=== PATIENT | male | born 1965 | race Caucasian/White ===

== ENCOUNTER 2016-08-25 18:20 | Emergency (ER) | payer OTHER ==
[~2016-08-25] VITALS: Ht 177.8 cm; Wt 97.5 kg
[~2016-08-25 18:20] MED LIST: CYMBALTA60 MG PO; DILAUDID 4 MG TA4 MG PO; DILAUDID4 M1 PO; DULOXETINE HCL60 MG PO; FIORICET 325 MG1 TAB PO; HYDROMORPHONE HC4 M1 PO; LIDODERM1 EACH EXT; MOTRIN IB200 M1 PO; NEURONTIN800 M1 PO; NEURONTIN800 M2 PO; OPANA ER15 M1 PO; OPANA ER20 M1 PO; OXYCONTIN20 M1 PO
--- NOTE | 2016-08-25 19:30 | RADIOLOGY REPORT ---
EXAMINATION: XR FINGER, RIGHT CLINICAL INFORMATION: Cut right thumb with greater. Laceration over base COMPARISON: None TECHNIQUE: 2 plain film views of the right thumb. FINDINGS: Bones are in normal anatomic alignment with no acute fracture or dislocation seen. Prominent degenerative changes seen about the first IP joint and MCP joint. Milder degenerative osteophyte formation seen within the second through fifth digits. No underlying acute fracture or dislocation. No radiopaque foreign body. IMPRESSION: Degenerative bony changes. I do not appreciate any radiopaque foreign body or acute bony abnormality.
--- NOTE | 2016-08-25 20:09 | ED UPPER/LOWER EXTREMITY COMPL ---
History of Present Illness General Chief Complaint: Hand or Wrist Injury Stated Complaint: PT CUT HIS RIGHT THUMB Source: patient Exam Limitations: no limitations Vital Signs & Intake/Output Vital Signs & Intake/Output Vital Signs Date Time Temp Pulse Resp B/P Pulse O2 O2 Flow FiO2 Ox Delivery Rate 08/25 2025 97.3 73 18 160/100 100 08/25 1835 96.3 84 18 143/97 98 Room Air Allergies Coded Allergies: NSAIDS (Non-Steroidal Anti-Inflamma (ANAPHYLAXIS - TONGUE SWELLS 01/02/16) Reconcile Medications Duloxetine HCl 60 MG CAPSULE.DR 1 CAP PO DAILY NERVE PAIN (Reported) Gabapentin (Neurontin) 800 MG TABLET 1 TAB PO Q6H NERVE PAIN (Reported) Hydromorphone HCl 4 MG TABLET 1 TAB PO 5 TIMES A DAY PAIN CONTROL (Reported) Oxymorphone HCl (Opana ER) 20 MG TAB.ER.12H 1 TAB PO BID PAIN (Reported) Triage Note: 51 YO MALE TO ER FOR LACERATION TO L THUMB. LAC APPROX 1 INCH. BLEEDING CONTROLLED. DRESSING APPLIED IN TRIAGE. STATES HE CUT THUMB ON A GRATER AT WORK. PT REPORTS TINGLING SENSATION TO THUMB. PT NOT UTD WITH TETANUS Triage Nurses Notes Reviewed? yes Onset: Abrupt Duration: constant Timing: single episode today Severity: severe Severity Numbers: 7 Pain/Injury Location: Right: Hand. HPI: Patient is a 51-year-old male with a past medical history of chronic back pain who presents emergency room stating that today this evening while patient was grinding a metal bolt he lost control of the bolts subsequently struck the dorsal aspect of his right hand to the instrument lens grinder resulting in a laceration which bleeding occurred immediately. Patient is right arm dominant. Tetanus status is unknown. Subsequent patient states that due to this episode patient twisted his back and has been complaint of severe back muscular pain. Past History Travel History Traveled to [place] past 21 day No Medical History Any Pertinent Medical History? 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 No Review of Systems Review of Systems Constitutional: Reports: no symptoms. EENTM: Reports: no symptoms. Respiratory: Reports: no symptoms. Cardiovascular: Reports: no symptoms. Gastrointestinal/Abdominal: Reports: no symptoms. Genitourinary: Reports: no symptoms. Musculoskeletal: Reports: see HPI, back pain. Skin: Reports: see HPI. Neurological/Psychological: Reports: no symptoms. Hematologic/Endocrine: Reports: see HPI, bleeding. Immunological: Reports: no symptoms. All Other Systems: Reviewed and Negative Physical Exam Physical Exam General Appearance: mild distress Neurologic/Tendon: normal sensation, normal motor functions, normal tendon functions, responds to pain, no evidence tendon injury, no pulse deficit Skin: normal color, warm/dry Comments: HEENT: Normal EENT exam, Neck: Supple, no lymphadenopathy, normal range of motion without pain or tenderness Back: Decreased active range of motion noted, generalized point tenderness noted Cardiovascular: Regular rate and rhythms no murmurs rubs or gallops, normal JVP Respiratory: Chest nontender. No respiratory distress.breath sounds clear to auscultation bilaterally Abdomen: Soft, nontender nondistended, no appreciable organomegaly. Normal bowel sounds. No ascites Extremity: No edema, no calf tenderness to palpation, normal and equal pulses. Neuro: Alert oriented x3, motor sensory normal, Skin: No appreciable rash on exposed skin, skin is warm and dry. Psych: Mood and affect is normal, memory and judgment is normal. Diagram Hands Back 1) 1.5 cm subcutaneous mildly gaping laceration with full active and resisted range of motion noted with first digit thumb flexion extension abduction and adduction and no tendon deficit no exposed bone no exposed tendon no active bleeding Progress Differential Diagnosis: arterial insufficiency, compartment syndrome, contusion, dislocation, DVT, fracture, gout, septic arthritis, sprain, tendon injury Plan of Care: Margins were revised the suture placement, patient tolerated well bacitracin and bandage was applied Diagnostic Imaging: Viewed by Me: Radiology Read. Radiology Impression: no acute abnormality, no fracture Comments: PATIENT: JUVENCIO GRIFFITHS PRESENT AGE: 51 PATIENT ACCOUNT NO: [id number] : 63 LOCATION: [facility] ORDERING PHYSICIAN: HENNING (TBS) DONTE SAEED SERVICE DATE: 08/25/16 EXAM TYPE: RAD - XRY-FINGERS, RIGHT EXAMINATION: XR FINGER, RIGHT CLINICAL INFORMATION: Cut right thumb with greater. Laceration over base COMPARISON: None TECHNIQUE: 2 plain film views of the right thumb. FINDINGS: Bones are in normal anatomic alignment with no acute fracture or dislocation seen. Prominent degenerative changes seen about the first IP joint and MCP joint. Milder degenerative osteophyte formation seen within the second through fifth digits. No underlying acute fracture or dislocation. No radiopaque foreign body. IMPRESSION: Degenerative bony changes. I do not appreciate any radiopaque foreign body or acute bony abnormality. Departure Departure Disposition: HOME OR SELF CARE Condition: Stable Clinical Impression Primary Impression: Laceration of hand, right Secondary Impressions: Low back strain Referrals: ISAAC MARLOW,MIRTHA Del Castillo (PCP/Family) Additional Instructions: As discussed BEGIN TO APPLY bacitracin to the area once a day for the following 4 days with bandage and then leave wound open to improve healing. If you note signs of infection redness, pain, swelling, discharge return to emergency room immediately. Return to the emergency room in 7-10 days for suture removal. Continue all medications as directed. Departure Forms: Customer Survey General Discharge Information Procedures Laceration/Wound Repair Laceration/Wound Repair: Wound Location: upper extremity (RIGHT HAND) Wound's Depth, Shape: linear, subcutaneous Wound Length (cm): 1.5 Wound Explored: clean, no foreign body removed, irrigated extensively Irrigated w/ Saline (ccs): 500 Betadine Prep? Yes Anesthesia: 1% lidocaine Volume Anesthetic (ccs): 4 Wound Repaired With: sutures Suture Size/Type: 5:0 Number of Sutures: 4 Layer Closure? No Progress: Margins were revised suture placement
[2016-08-25 20:26] VITALS: BP 160/100
== END 2016-08-25 21:01 ==
LOC: ERH 18:20
DX: S61.011A Laceration without foreign body of right thumb without damage to nail, initial encounter (principal); S39.012A Strain of muscle, fascia and tendon of lower back, initial encounter; W31.1XXA Contact with metalworking machines, initial encounter
CPT/HCPCS: 73140-RT; 90714

== ENCOUNTER 2016-09-15 15:50 | Inpatient (IN) | payer OTHER ==
[~2016-09-15] VITALS: Ht 177.8 cm; Wt 99.8 kg
--- NOTE | 2016-09-15 16:26 | ED MVC/FALL/TRAUMA COMPLAINT ---
History of Present Illness General Chief Complaint: Fall Stated Complaint: PER PT FELL DOWN 20 STAIRS, PAIN ALL OVER -LOC Source: patient, old records Exam Limitations: no limitations Vital Signs & Intake/Output Vital Signs & Intake/Output Vital Signs Date Time Temp Pulse Resp B/P Pulse O2 O2 Flow FiO2 Ox Delivery Rate 09/15 2154 97.6 80 18 155/92 96 Room Air Room Air 09/15 1925 97.5 78 18 167/95 96 Room Air Room Air 09/15 1556 97.8 92 20 152/100 95 Room Air Allergies Coded Allergies: NSAIDS (Non-Steroidal Anti-Inflamma (ANAPHYLAXIS - TONGUE SWELLS 01/02/16) Reconcile Medications Duloxetine HCl 60 MG CAPSULE.DR 1 CAP PO DAILY NERVE PAIN (Reported) Gabapentin (Neurontin) 800 MG TABLET 1 TAB PO Q6H NERVE PAIN (Reported) Hydromorphone HCl 4 MG TABLET 1 TAB PO 5 TIMES A DAY PAIN CONTROL (Reported) Oxymorphone HCl (Opana ER) 20 MG TAB.ER.12H 1 TAB PO BID PAIN (Reported) Triage Note: C/O MULTIPLE BODY PAIN AFTER FALLING DOWN STEPS APPROX 1/2 HR AGO C/O BILATERAL LEG NUMBNESS AND PAIN BUT REPORTS HX OF SCIATICA AND DUE FOR SURG C/O LBP, SHOULDER PAIN, HEAD PAIN ALERT ORIENTED MOVING ALL EXTREMITIES Triage Nurses Notes Reviewed? yes Onset: Just prior to arrival Duration: hour(s): (1) Timing: no prior history Severity: moderate Severity Numbers: 8 Injuries/Fall Location: upper extremity, back, lower extremity Method of Injury: fall Loss of Consciousness: unsure Modifying Factors: Worsens With: movement. HPI: Patient is a 51-year-old male with history of herniated disks in the low back presenting to the emergency department chief complaint of fall down approximately 20 steps prior to arrival. He reports that he was walking down to his basement accidentally tripped and fell forward. He slid down approximately 20 steps. He thinks he may of hit his head at the end of the fall but is unsure. Unsure of LOC. He reports that he braced himself with his upper and lower extremities sliding down on his forearms. Denies abdominal pain or chest pain. No visual changes or nausea or vomiting. He was lying on the ground for about 15-20 minutes before he was able to get up by himself. He reports that over the past several months he's had increasing low back pain radiating down both legs. He is supposed to have low back surgery in approximately 2 weeks by a neurosurgeon. Denies any urinary incontinence or retention. Denies taking anything for pain prior to arrival. He does take daily Dilaudid for chronic pain. Patient also reporting that over the past couple months symptoms have been worsening along with his depression. Patient reports that he is always in pain and he feels like if his pain is starting to get better than he doesn't want to be here any longer. Denies any active suicidal ideation. He does report increased anxiety and depression around his symptoms. (GABRIEL DELAROSA) Past History Travel History Traveled to [place] past 21 day No Medical History Any Pertinent Medical History? see below for history Neurological: migraine EENT: NONE Cardiovascular: hypertension Respiratory: NONE, SMOKER Gastrointestinal: ICONTINENCE AT TIMES Hepatic: NONE Renal: NONE Musculoskeletal: chronic back pain Psychiatric: anxiety, depression Endocrine: NONE Blood Disorders: NONE Cancer(s): NONE IT CONSULTING MANAGER/Reproductive: NONE History of MRSA: No History of VRE: No History of CDIFF: No Tetanus Vaccine: 08/25/16 Surgical History Surgical History: non-contributory Psychosocial History Who do you live with Patient/Self What is your primary language Ghanaian Tobacco Use: Current Not Daily Daily Tobacco Use Amount/Type: =< 4 Cigarettes daily ETOH Use: denies use Illicit Drug Use: denies illicit drug use Family History Family History, If Any: Relation not specified for: *No pertinent family history Hx Contributory? No (GABRIEL DELAROSA) Review of Systems Review of Systems Constitutional: Reports: malaise. Comments Review of systems: See HPI, All other systems negative. Constitutional, no chills fever or weight loss HEENT: No visual changes no sore throat no congestion Cardiovascular: No chest pain ,palpitation , orthopnea or ankle swelling Skin, no jaundice no rashes Respiratory: No dyspnea cough sputum or hemoptysis GI: No nausea no vomiting : No dysuria No hematuria Muscle skeletal: no neck pain, Neurologic: no confusion, no headaches Psych: Positive stress Heme/endocrine: No bruising no bleeding no polyuria or polydipsia Immunology: No splenectomy or history of AIDS (GABRIEL DELAROSA) Physical Exam Physical Exam General Appearance: well developed/nourished, alert, awake, mild distress Comments: Well-developed well-nourished person in mild distress HEENT: extraocular motion intact, no nystagmus. Pupils equally round and reactive to light and accommodation. Nose is atraumatic. External auditory canal and Tympanic membranes clear. Pharynx normal. No swelling or edema. Neck: Supple, no lymphadenopathy, normal range of motion without pain or tenderness, no C-spine tenderness. No step-off deformities. No crepitus palpated. Back: Tender to palpation along L1, L2-L3 and L4. Positive straight leg raise bilaterally at approximately 25. Significant limited range of motion of the back with back extension and Forward flexion secondary to pain. Cardiovascular: Regular rate and rhythms no murmurs rubs or gallops, normal JVP Respiratory: Chest nontender. No respiratory distress.breath sounds clear to auscultation bilaterally Abdomen: Soft, nontender nondistended, no appreciable organomegaly. Normal bowel sounds. No ascites, no rebound or guarding. Extremity: No edema, no calf tenderness to palpation, normal and equal pulses. Tender to palpation over the right ac joint, limited range of motion of right shoulder. Tender to palpation of the distal aspect of the right clavicle. No obvious deformity appreciated. Full range of motion of left upper extremity. Neuro: Alert oriented x3, motor normal in upper and lower extremities, sensory slightly diminished on the lateral aspects of both feet to sensation. Cranial nerves II through XII grossly intact. Cerebellar testing is unremarkable. Patellar reflexes are 2+ bilaterally. Skin: Superficial abrasions noted over the volar aspect of both forearms, the anterior aspect of both shins. Abrasions are approximately 10 cm in length. No active bleeding. No surrounding erythema or edema. No appreciable rash on exposed skin, skin is warm and dry. There are also superficial abrasions noted to the right hip area. Tender to palpation of the right hip with limited range of motion with right hip flexion and extension. Psych: depressed affect Core Measures ACS in differential dx? No Severe Sepsis Present: No Septic Shock Present: No (GABRIEL DELAROSA) Progress Differential Diagnosis: C/T/L spine injury, ext injury, ICH, pelvis injury, herniated disk, compression fx,shoulder dislocation, humeral fx, cauda equina Plan of Care: Orders Procedure Date/time Status CBC WITHOUT DIFFERENTIAL 03/05 0600 Active BASIC ELECTROLYTES PLUS BUN&CR 09/16 599 Active Regular Diet 09/15 D Active Pathway - chart 09/16 2103 Active House Staff 09/16 2103 Active Patient Data 09/16 2103 Active Code Status 09/16 2103 Active Admit to inpatient 09/15 2101 Active Patient Data 09/15 2058 Active Add-on Test (ER Only) 09/15 1859 Active ETHANOL 09/15 183 Complete URINE DRUG SCREEN FOR ER ONLY 09/15 1746 Complete COMPREHENSIVE METABOLIC PANEL 09/15 174 Complete CBC WITHOUT DIFFERENTIAL 09/15 174 Complete VITAMIN B12 09/15 1746 Complete Intake & Output 09/15 1634 Active PT Evaluate & Treat 09/15 UNK Active VTE Mechanical Prophylaxis 09/15 UNK Active Current Medications Sig/Sarwat Start time Last Medication Dose Stop Time Status Admin Methylprednisolone 4 MG 0700 09/17 0700 AC (Medrol) 09/21 0701 Methylprednisolone 4 MG 1300 09/16 1300 AC (Medrol) 09/19 1301 Enoxaparin Sodium 40 MG DAILY 09/16 1000 AC (Lovenox) Non-Formulary 0 SEE ADMIN CRITERIA 09/16 1000 UNV Medication (NON FORMULARY) Polyethylene Glycol 17 GM DAILY 09/16 1000 AC (Miralax) Senna/Docusate Sodium 2 TAB DAILY 09/16 1000 AC (Senokot S) Methylprednisolone 8 MG 0700,2200 09/16 0700 AC (Medrol) 09/16 2201 Gabapentin 800 MG Q6 09/15 2359 AC (Neurontin) Duloxetine HCl 60 MG QPM 09/15 220 AC (Cymbalta) Hydromorphone HCl 4 MG Q6-PRN PRN 09/15 220 AC (Dilaudid) Hydromorphone HCl 2 MG Q3P PRN 09/15 2200 AC (Dilaudid) Oxycodone HCl 20 MG BID 09/15 220 AC (OxyCONTIN) Acetaminophen 650 MG Q6P PRN 09/15 211 AC (Tylenol) Laboratory Tests 09/15/16 1844: Urine Opiates Screen > 4000.00 H, Methadone Screen 48, Barbiturate Screen < 60, Ur Phencyclidine Scrn < 6.00, Amphetamines Screen 132, U Benzodiazepines Scrn < 85, Urine Cocaine Screen < 50, Urine Cannabis Screen < 5.00 09/15/16 1831: Anion Gap 7, Estimated GFR > 60, BUN/Creatinine Ratio 18.8, Glucose 82, Calcium 9.0, Total Bilirubin 1.1, AST 25, ALT 30, Alkaline Phosphatase 66, Total Protein 6.5, Albumin 3.8, Globulin 2.7, Albumin/Globulin Ratio 1.4, Vitamin B12 446, CBC w Diff NO MAN DIFF REQ, RBC 5.32, MCV 88.1, MCH 30.2, RDW 13.4, MPV 7.0 L, Gran % 66.2, Lymphocytes % 23.9, Monocytes % 5.4, Eosinophils % 3.7, Basophils % 0.8, Absolute Granulocytes 4.6, Absolute Lymphocytes 1.6, Absolute Monocytes 0.4, Absolute Eosinophils 0.3, Absolute Basophils 0.1, PUBS MCHC 34.3, Serum Alcohol < 10.0 Diagnostic Imaging: Viewed by Me: Radiology Read, CT Scan. Discussed w/RAD: Radiology Read, CT Scan. Radiology Impression: PATIENT: JUVENCIO GRIFIFTHS PRESENT AGE: 51 PATIENT ACCOUNT NO: [id number] : 63 LOCATION: [facility] ORDERING PHYSICIAN: GABRIEL REINA SERVICE DATE: 09/15/16 EXAM TYPE: CAT - CT CERV SPINE WO IV CONTRAST; CT HEAD WO IV CONTRAST EXAMINATION: CT HEAD WITHOUT CONTRAST CLINICAL INFORMATION: Fall, head trauma COMPARISON: [address] scan TECHNIQUE: Contiguous axial imaging was performed from the skull base to vertex without intravenous administration of contrast. DLP: 1046.37 mGy-cm FINDINGS: CT scan head: There is no evidence of acute intracranial hemorrhage or territorial infarction. No abnormal mass effect or midline shift is seen. Canas to white matter differentiation is well preserved. No extra-axial fluid collections are identified. The ventricles are normal in size. There is no abnormal attenuation within the brain parenchyma. The osseous structures and soft tissues are normal. The mastoid air cells and visualized portions of the paranasal sinuses are well aerated. CT scan cervical spine: There is normal vertebral body height and alignment of cervical spine. No acute fracture or dislocation seen. The intervertebral disc spaces are within normal limits. The posterior elements are intact. The C1-C2 and craniocervical junctions are within normal limits. The paraspinal soft tissue is unremarkable. The visualized lung apices are clear without pneumothorax. IMPRESSION: No acute intracranial hemorrhage or acute skull fracture. No acute fracture or dislocation of cervical spine. DICTATED BY: PRASAD SPRING MD DATE/TIME DICTATED:09/15/161712 DIRECTOR CUSTOM:DERRICK DATE/TIME TRANSCRIBED:1712 CONFIDENTIAL, DO NOT COPY WITHOUT APPROPRIATE AUTHORIZATION. < Electronically signed in Other Vendor System> SIGNED BY: PRASAD SPRING MD 09/15/16 1730, PATIENT: JUVENCIO GRIFFITHS PRESENT AGE: 51 PATIENT ACCOUNT NO: [id number] : 63 LOCATION: [facility] ORDERING PHYSICIAN: GABRIEL REINA SERVICE DATE: 09/15/16 EXAM TYPE: CAT - CT LUMB SPINE WO IV CONTRAST EXAMINATION: CT LUMBAR SPINE WITHOUT CONTRAST CLINICAL INFORMATION: Worsening pain after fall. COMPARISON: CT lumbar spine, 01/02/2016. MRI of lumbar spine from 07/30/2016. TECHNIQUE: Helical non-contrast CT images were obtained through the lumbar spine and 1.25 and 2.5 mm axial reconstructions were reviewed along with sagittal and coronal MPRs. DLP: 1209 mGy-cm FINDINGS: There is transitional lumbosacral anatomy with partial lumbarization of S1; a rudimentary disc is present at the S1-S2 level. There are no acute fractures within anterior or posterior elements of the lumbar spine. No evidence of traumatic vertebral subluxation. Again noted is relative straightening of the lumbar spine with reduction of its expected lordotic curve. There is slight levocurvature of the lumbar spine. There is an L5 limbus vertebra. At T12-L1, disc contour is normal. Central canal and spinal canal are widely patent. At L1- L2, the disc contour is normal and there is no evidence of central canal or neural foraminal stenosis. At L2-L3, there is mild facet arthropathy, mild disc bulge and traction osteophyte formation. The bulging disc produces mild indentation upon the ventral surface of the thecal sac. The neural foramina are widely patent. At L3-L4, the disc height is maintained and there is negligible disc bulge. Central spinal canal and neural foramina are widely patent. At L4-L5 , there is mild disc space narrowing, disc bulge, traction osteophyte formation and mild facet arthropathy. The bulging disc produces mild impression upon the ventral surface of the thecal sac and there is mild bilateral neural foraminal stenosis at this level. At L5-S1, there is an old left L5 laminotomy defect, mild disc bulge and [id number] bilateral facet arthropathy. Again noted is [id number] right and severe left foraminal stenosis at this level. No evidence of sacral fracture or SI joint diastases. The abdominal aorta is normal in caliber. No retroperitoneal hematoma or para-aortic lymphadenopathy. The visualized portions of the kidneys and ureters are normal. There is diverticulosis of the sigmoid colon without diverticulitis. IMPRESSION: 1. No acute findings within the lumbosacral spine compared to 04/03/2016. 2. At L5-S1, there is moderate disc degeneration, disc bulge and facet arthropathy with chronic, severe left-sided neural foraminal stenosis at this level. 3. Sigmoid colon diverticulosis without diverticulitis., PATIENT: JUVENCIO GRIFFITHS PRESENT AGE: 51 PATIENT ACCOUNT NO: [id number] : 63 LOCATION: [facility] ORDERING PHYSICIAN: GABRIEL REINA SERVICE DATE: 09/15/16 EXAM TYPE: RAD - XRY-HIP 2-3 VIEWS, RIGHT EXAMINATION: XR HIP, RIGHT CLINICAL INFORMATION: Pain after fall. COMPARISON: 02/13/2014. TECHNIQUE: Pelvis , AP view Right hip, AP and frog-leg lateral views FINDINGS: Osseous pelvic ring is intact and the bones have normal alignment. At L4-L5, there is mild disc space narrowing and traction osteophyte formation. At L5-S1, there is chronic disc degeneration with moderate loss of disc space, vacuum disc phenomenon and osteophyte formation. The articular cartilage space of each hip is maintained. At the right hip, the intact femoral head is well-positioned within the acetabulum. No focal soft tissue swelling. IMPRESSION: No acute abnormalities within the pelvis or right hip. DICTATED BY: DIRK BRUMFIELD MD DATE/TIME DICTATED:09/15/161740 DIRECTOR CUSTOM:DERRICK DATE/TIME TRANSCRIBED:1740 CONFIDENTIAL, DO NOT COPY WITHOUT APPROPRIATE AUTHORIZATION. < Electronically signed in Other Vendor System> SIGNED BY: DIRK BRUMFIELD MD 09/15/161746, PATIENT: JUVENCIO GRIFFITHS PRESENT AGE: 51 PATIENT ACCOUNT NO: [id number] : 61 LOCATION: [facility] ORDERING PHYSICIAN: GABRIEL REINA SERVICE DATE: 09/15/16 EXAM TYPE: RAD - XRY- SHOULDER COMPLETE-RIGHT EXAMINATION: XR SHOULDER, RIGHT CLINICAL INFORMATION: Pain after fall. COMPARISON: None TECHNIQUE: Right shoulder, 3 views FINDINGS: Bones have normal alignment at the acromioclavicular and glenohumeral joints. At the acromioclavicular joint, there is articular surface irregularity, sclerosis, osteophyte formation, and a well-corticated ossicle is seen along the superior ligament of the joint. The humeral head is well-positioned over the intact glenoid. No focal soft tissue swelling. The visualized right upper lung is clear. IMPRESSION: - No acute findings at the right shoulder. - Moderate osteoarthritis of the acromioclavicular joint. DICTATED BY: DIRK BRUMFIELD MD DATE/TIME DICTATED:09/15/161736 DIRECTOR CUSTOM:DERRICK DATE/TIME TRANSCRIBED:09/15/161736 CONFIDENTIAL, DO NOT COPY WITHOUT APPROPRIATE AUTHORIZATION. <Electronically signed in Other Vendor System> SIGNED BY: DIRK BRUMFIELD MD 09/15/16 0070 Comments: 09/15/2016 5:02:45 PM patient is uncomfortable appearing, neurovascularly intact. Limited range of motion of the back secondary to pain. Patient medicated with IV Valium, IV Dilaudid. Old records reviewed. Patient has history of severe foraminal narrowing of the spine. Patient scheduled to have surgery in 2 weeks. 09/15/2016 9:17:27 PM patient informed to follow me and results and laboratory results. Per crisis patient too drowsy to be evaluated at this times they will follow him once patient is admitted medically. Spoke with Dr. Farias, patient' s neurosurgeon. She is recommending pain control at this time. Since there is no gross abnormality on CT scan and no neurological findings that are different from previous examination patient will have the surgery on September 24 as scheduled. (YARIEL REINA,GABRIEL) Departure Departure Time of Disposition: 1940 Disposition: STILL A PATIENT Condition: Stable Clinical Impression Primary Impression: Intractable back pain Secondary Impressions: Hypertension Qualifiers: Hypertension type: essential hypertension Qualified Code: I10 - Essential (primary) hypertension Referrals: ISAAC MARLOW,MIRTHA Del Castillo (PCP/Family) Departure Forms: Customer Survey General Discharge Information Admission Note Spoke With: JOEL WILLS MD Documentation of Exam: Documentation of any treatments & extenuating circumstances including Concerns Regarding Discharge (functional status, medication knowledge or non-compliance, living conditions, etc.) that warrant an admission rather than observation: Patient requiring several doses of IV pain medication for back pain, may require neurosurgery consultation while admitted, physical therapy evaluation. Discharged at this time would be medically harmful. (GABRIEL DELAROSA) PA/[employer] Co-Sign Statement Statement: ED Attending supervision documentation- [] I saw and evaluated the patient. I have also reviewed all the pertinent lab results and diagnostic results. I agree with the findings and the plan of care as documented in the PA's/[employer]'s documentation. [X] I have reviewed the ED Record and agree with the PA's/[employer]'s documentation. [] Additions or exceptions (if any) to the PAs/[employer]'s note and plan are summarized below: [] (JUAN MARLOW,JASEN Bland)
--- NOTE | 2016-09-15 16:32 | NUR ---
APPRECIATE TRIAGE NOTE. PT ASSISTED ONTO STRETCHER FROM WHEELCHAIR AND POSITIONED ON STRETCHER. MST MAURY CLEANING LACERATIONS TO BLE RESULTING FROM FALLS. PT MEDICATED PER EMAR FOR PAIN 04/23. AWAITING RADIOLOGY FOR CAT SCAN AND X-RAY. PT VERBALIZES UNDERSTANDING OF PLAN.
--- NOTE | 2016-09-15 16:39 | NUR ---
PER NUNO GUAJARDO, CLEANED PATIENTS WOUNDS WITH BETADINE AND SALINE, APPLIED BANDAID TO RIGHT COATS
--- NOTE | 2016-09-15 16:55 | NUR ---
PT CONTINUES AT RADIOLOGY VIA STRETCHER.
--- NOTE | 2016-09-15 17:30 | CT SCAN REPORT ---
EXAMINATION: CT HEAD WITHOUT CONTRAST CLINICAL INFORMATION: Fall, head trauma COMPARISON: 06/06/[address] scan TECHNIQUE: Contiguous axial imaging was performed from the skull base to vertex without intravenous administration of contrast. DLP: 1046.37 mGy-cm FINDINGS: CT scan head: There is no evidence of acute intracranial hemorrhage or territorial infarction. No abnormal mass effect or midline shift is seen. Canas to white matter differentiation is well preserved. No extra-axial fluid collections are identified. The ventricles are normal in size. There is no abnormal attenuation within the brain parenchyma. The osseous structures and soft tissues are normal. The mastoid air cells and visualized portions of the paranasal sinuses are well aerated. CT scan cervical spine: There is normal vertebral body height and alignment of cervical spine. No acute fracture or dislocation seen. The intervertebral disc spaces are within normal limits. The posterior elements are intact. The C1-C2 and craniocervical junctions are within normal limits. The paraspinal soft tissue is unremarkable. The visualized lung apices are clear without pneumothorax. IMPRESSION: No acute intracranial hemorrhage or acute skull fracture. No acute fracture or dislocation of cervical spine.
--- NOTE | 2016-09-15 17:31 | CT SCAN REPORT ---
EXAMINATION: CT LUMBAR SPINE WITHOUT CONTRAST CLINICAL INFORMATION: Worsening pain after fall. COMPARISON: CT lumbar spine, 01/02/2016. MRI of lumbar spine from 07/30/2016. TECHNIQUE: Helical non-contrast CT images were obtained through the lumbar spine and 1.25 and 2.5 mm axial reconstructions were reviewed along with sagittal and coronal MPRs. DLP: 1209 mGy-cm FINDINGS: There is transitional lumbosacral anatomy with partial lumbarization of S1; a rudimentary disc is present at the S1-S2 level. There are no acute fractures within anterior or posterior elements of the lumbar spine. No evidence of traumatic vertebral subluxation. Again noted is relative straightening of the lumbar spine with reduction of its expected lordotic curve. There is slight levocurvature of the lumbar spine. There is an L5 limbus vertebra. At T12-L1, disc contour is normal. Central canal and spinal canal are widely patent. At L1-L2, the disc contour is normal and there is no evidence of central canal or neural foraminal stenosis. At L2-L3, there is mild facet arthropathy, mild disc bulge and traction osteophyte formation. The bulging disc produces mild indentation upon the ventral surface of the thecal sac. The neural foramina are widely patent. At L3-L4, the disc height is maintained and there is negligible disc bulge. Central spinal canal and neural foramina are widely patent. At L4-L5, there is mild disc space narrowing, disc bulge, traction osteophyte formation and mild facet arthropathy. The bulging disc produces mild impression upon the ventral surface of the thecal sac and there is mild bilateral neural foraminal stenosis at this level. At L5-S1, there is an old left L5 laminotomy defect, mild disc bulge and [id number] bilateral facet arthropathy. Again noted is [id number] right and severe left foraminal stenosis at this level. No evidence of sacral fracture or SI joint diastases. The abdominal aorta is normal in caliber. No retroperitoneal hematoma or para-aortic lymphadenopathy. The visualized portions of the kidneys and ureters are normal. There is diverticulosis of the sigmoid colon without diverticulitis. IMPRESSION: 1. No acute findings within the lumbosacral spine compared to 04/03/2016. 2. At L5-S1, there is moderate disc degeneration, disc bulge and facet arthropathy with chronic, severe left-sided neural foraminal stenosis at this level. 3. Sigmoid colon diverticulosis without diverticulitis.
--- NOTE | 2016-09-15 17:41 | NUR ---
NUNO SALDIVAR TO BEDSIDE TO DISCUSS RESULTS AND POC.
--- NOTE | 2016-09-15 17:43 | RADIOLOGY REPORT ---
EXAMINATION: XR SHOULDER, RIGHT CLINICAL INFORMATION: Pain after fall. COMPARISON: None TECHNIQUE: Right shoulder, 3 views FINDINGS: Bones have normal alignment at the acromioclavicular and glenohumeral joints. At the acromioclavicular joint, there is articular surface irregularity, sclerosis, osteophyte formation, and a well-corticated ossicle is seen along the superior ligament of the joint. The humeral head is well-positioned over the intact glenoid. No focal soft tissue swelling. The visualized right upper lung is clear. IMPRESSION: - No acute findings at the right shoulder. - Moderate osteoarthritis of the acromioclavicular joint.
--- NOTE | 2016-09-15 17:47 | RADIOLOGY REPORT ---
EXAMINATION: XR HIP, RIGHT CLINICAL INFORMATION: Pain after fall. COMPARISON: 02/13/2014. TECHNIQUE: Pelvis, AP view Right hip, AP and frog-leg lateral views FINDINGS: Osseous pelvic ring is intact and the bones have normal alignment. At L4-L5, there is mild disc space narrowing and traction osteophyte formation. At L5-S1, there is chronic disc degeneration with moderate loss of disc space, vacuum disc phenomenon and osteophyte formation. The articular cartilage space of each hip is maintained. At the right hip, the intact femoral head is well-positioned within the acetabulum. No focal soft tissue swelling. IMPRESSION: No acute abnormalities within the pelvis or right hip.
[2016-09-15 18:38] LABS: ABSOLUTE BASOPHIL COUNT 0.1 /CUMM (0.0-0.2); ABSOLUTE EOSINOPHIL COUNT 0.3 /CUMM (0.0-0.7); ABSOLUTE GRANULOCYTE CT 4.6 /CUMM (1.4-6.5); ABSOLUTE LYMPH COUNT 1.6 /CUMM (1.2-3.4); ABSOLUTE MONOCYTE COUNT 0.4 /CUMM (0.10-0.60); BASOPHIL % 0.8 % (0.0-2.0); EOSINOPHIL % 3.7 % (0-5); GRANULOCYTE % 66.2 % (42.2-75.2); HEMATOCRIT 46.9 % (42-52); MEAN CORPUSCULAR HGB 30.2 PG (27.0-31.0); MEAN CORPUSCULAR HGB CONC 34.3 G/DL (33.0-37.0); MEAN CORPUSCULAR VOLUME 88.1 FL (80.0-94.0); PLATELET COUNT 209 /CUMM (130-400); RBC DISTRIBUTION WIDTH 13.4 % (11.5-14.5); RED BLOOD CELL CT 5.32 /CUMM (4.70-6.10); WHITE BLOOD CELL COUNT 6.9 /CUMM (4.8-10.8)
--- NOTE | 2016-09-15 18:47 | NUR ---
LINE EST #20 TO [facility]. LABS SENT (LAV,SST,EXTRA BLUE.) URINE TRIO SENT.
--- NOTE | 2016-09-15 19:27 | NUR ---
PT REPORTS MINIMAL RELIEF FROM PAIN AT THIS TIME. MEDICATED PER EMAR. NUNO SALDIVAR AWARE.
--- NOTE | 2016-09-15 19:28 | NUR ---
NUNO SALDIVAR TO BEDSIDE FOR EVAL.
--- NOTE | 2016-09-15 20:00 | NUR ---
Crisis met with pt briefly. He was in a lot of pain. He was having a hard time engaging in a fluid conversation. Pt reported he has surgery on 09/24 to repair his back. He was hopeful that this would eliminate chronic pain. Pt reported to crisis that he was being admitted medically as his pain is not under control yet. Told pt crisis would check in with him later in the night.
--- NOTE | 2016-09-15 21:07 | NUR ---
Crisis checked in with pt before she left for the evening. Pt was frustrated that he hasn't recieved more pain meds since crisis was last in his room. At first he blamed crisis for this as he reported things stopped when you came in. However pt expressed frustratations with chronic pain. He asked to speak with his nurse. When his nurse entered, crisis said jitendra and left room.
--- NOTE | 2016-09-15 21:15 | NUR ---
PT GOING TO ROOM 210-1.
--- NOTE | 2016-09-15 21:48 | NUR ---
REPORT GIVEN TO NICOLETTE TORRES. DISTROBUTION CALLED FOR PT TRANSPORT.
--- NOTE | 2016-09-15 21:56 | History & Physical ---
MNOICA MARLOW,[facility] 09/15/16 2155: General Information and HPI MD Statement: I have seen and personally examined JUVENCIO GRIFFITHS and documented this H&P. The patient is a 51 year old M who presented with a patient stated chief complaint of fall and back pain. Source of Information: patient Exam Limitations: no limitations History of Present Illness: This is a 50-year-old pleasant gentleman with a past medical history significant for chronic back pain, chronic lumbar spondylosis and radiculopathy including foot drop, peripehral neuropathy, previous falls, presents to [place] ED for evaluation after experiencing a fall. Patient states that today, while he was coming down his flight of stairs, he had a fall after what he described as " my right foot gave out on me". Pt reports falling down 20 steps of stairs. He denies any loss of consciousness. He also denies prior to the fall experiencing any palpitation, chest pain, dizziness, lightheadedness, vertigo, diaphoresis, or tinnitus. Patient does report that in addition to his left chronic left foot drop, he has now recently developed a right foot drop too . He endorses pain radiating from buttocks to his lower extremities. He also reports occasional episodes of bowel and urinary continence but reports that these episodes as chronic and his neurosurgical team is aware. Of note, patient is actively following up with Dr. Marrero who has scheduled surgery on his back in about 2 weeks. Allergies/Medications Allergies: Coded Allergies: NSAIDS (Non-Steroidal Anti-Inflamma (ANAPHYLAXIS - TONGUE SWELLS 01/02/16) Home Med list Duloxetine HCl 60 MG CAPSULE.DR 1 CAP PO DAILY NERVE PAIN (Reported) Gabapentin (Neurontin) 800 MG TABLET 1 TAB PO Q6H NERVE PAIN (Reported) Hydromorphone HCl 4 MG TABLET 1 TAB PO 5 TIMES A DAY PAIN CONTROL (Reported) Oxymorphone HCl (Opana ER) 20 MG TAB.ER.12H 1 TAB PO BID PAIN (Reported) Past History Travel History Traveled to [place] past 21 day No Medical History Neurological: migraine EENT: NONE Cardiovascular: hypertension Respiratory: NONE, SMOKER Gastrointestinal: ICONTINENCE AT TIMES Hepatic: NONE Renal: NONE Musculoskeletal: chronic back pain Psychiatric: anxiety, depression Endocrine: NONE Blood Disorders: NONE Cancer(s): NONE ELEVATORS INSPECTOR/Reproductive: NONE History of MRSA: No History of VRE: No History of CDIFF: No Tetanus Vaccine: 08/25/16 Surgical History Surgical History: non-contributory Past Family/Social History Family History Relations & Conditions if any Relation not specified for: *No pertinent family history Psychosocial History ETOH Use: denies use Illicit Drug Use: denies illicit drug use Functional Ability ADLs Independent: dressing, eating, toileting, bathing. Review of Systems Review of Systems Constitutional: Reports: see HPI. EENTM: Denies: blurred vision, double vision, eye pain, eye drainage. Cardiovascular: Denies: chest pain, edema, orthopena, palpitations, peripheral edema. Respiratory: Denies: cough, hemoptysis, orthopnea, short of breath. GI: Reports: bowel incontinence. Denies: constipation, diarrhea, distention. Genitourinary: Denies: hesitation, nocturia, pain. Musculoskeletal: Reports: back pain. Skin: Denies: dryness, erythema, jaundice. Neurological/Psychological: Denies: confusion, depressed, dementia. Hematologic/Endocrine: Reports: no symptoms. Immunologic/Allergic: Reports: no symptoms. All Other Systems: Reviewed and Negative Exam & Diagnostic Data Last 24 Hrs of Vital Signs/I&O Vital Signs Date Time Temp Pulse Resp B/P Pulse O2 O2 Flow FiO2 Ox Delivery Rate 09/15 2225 98.2 80 22 172/118 92 Room Air / 2155 97.6 80 18 155/92 96 Room Air Room Air / 1926 97.5 78 18 167/95 96 Room Air Room Air 09/15 1556 97.8 92 20 152/100 95 Room Air Intake & Output 09/15 1600 09/15 0800 09/15 0000 Intake Total Output Total Balance Patient 99.79 kg Weight Physical Exam General Appearance Alert, Oriented X3, Cooperative, Mild Distress Skin No Significant Lesion HEENT Mucous Membr. moist/pink Neck Supple, No JVD, No thryomegaly, +2 Carotid Pulse wo Bruit Lymphatic Cervical nl Cardiovascular Regular Rate, Normal S1, Normal S2, No Murmurs, Gallops, Rubs Lungs Clear to Auscultation, Normal Air Movement Abdomen Normal Bowel Sounds, Soft, No Tenderness, No Hepatospenomegaly, No Masses Neurological Normal Speech, Strength at 5/5 X4 Ext, Reflexes 2+ (normal flexor plantar reflex), decreased sensation b/l along lateral thigh and medial leg area , consistent with L4-L5 distribution. No saddle anesthesia noted. Extremities tenderness of palpation of spinal process at T-12 through L5. Vascular Pulses Symmetrical Last 24 Hrs of Labs/Juvenal: Laboratory Tests 09/15/16 1844: Urine Opiates Screen > 4000.00 H, Methadone Screen 48, Barbiturate Screen < 60, Ur Phencyclidine Scrn < 6.00, Amphetamines Screen 132, U Benzodiazepines Scrn < 85, Urine Cocaine Screen < 50, Urine Cannabis Screen < 5.00 09/15/16 1831: Anion Gap 7, Estimated GFR > 60, BUN/Creatinine Ratio 18.8, Glucose 82, Calcium 9.0, Total Bilirubin 1.1, AST 25, ALT 30, Alkaline Phosphatase 66, Total Protein 6.5, Albumin 3.8, Globulin 2.7, Albumin/Globulin Ratio 1.4, Vitamin B12 446, CBC w Diff NO MAN DIFF REQ, RBC 5.32, MCV 88.1, MCH 30.2, RDW 13.4, MPV 7.0 L, Gran % 66.2, Lymphocytes % 23.9, Monocytes % 5.4, Eosinophils % 3.7, Basophils % 0.8, Absolute Granulocytes 4.6, Absolute Lymphocytes 1.6, Absolute Monocytes 0.4, Absolute Eosinophils 0.3, Absolute Basophils 0.1, PUBS MCHC 34.3, Serum Alcohol < 10.0 Diagnostic Data Other Results SERVICE DATE: 09/15/16-1622 EXAM TYPE: CAT - CT LUMB SPINE WO IV CONTRAST EXAMINATION: CT LUMBAR SPINE WITHOUT CONTRAST CLINICAL INFORMATION: Worsening pain after fall. COMPARISON: CT lumbar spine, 01/02/2016. MRI of lumbar spine from 07/30/2016. TECHNIQUE: Helical non-contrast CT images were obtained through the lumbar spine and 1.25 and 2.5 mm axial reconstructions were reviewed along with sagittal and coronal MPRs. DLP: 1209 mGy-cm FINDINGS: There is transitional lumbosacral anatomy with partial lumbarization of S1; a rudimentary disc is present at the S1-S2 level. There are no acute fractures within anterior or posterior elements of the lumbar spine. No evidence of traumatic vertebral subluxation. Again noted is relative straightening of the lumbar spine with reduction of its expected lordotic curve. There is slight levocurvature of the lumbar spine. There is an L5 limbus vertebra. At T12-L1, disc contour is normal. Central canal and spinal canal are widely patent. At L1-L2, the disc contour is normal and there is no evidence of central canal or neural foraminal stenosis. At L2-L3, there is mild facet arthropathy, mild disc bulge and traction osteophyte formation. The bulging disc produces mild indentation upon the ventral surface of the thecal sac. The neural foramina are widely patent. At L3-L4, the disc height is maintained and there is negligible disc bulge. Central spinal canal and neural foramina are widely patent. At L4-L5, there is mild disc space narrowing, disc bulge, traction osteophyte formation and mild facet arthropathy. The bulging disc produces mild impression upon the ventral surface of the thecal sac and there is mild bilateral neural foraminal stenosis at this level. At L5-S1, there is an old left L5 laminotomy defect, mild disc bulge and [id number] bilateral facet arthropathy. Again noted is [id number] right and severe left foraminal stenosis at this level. No evidence of sacral fracture or SI joint diastases. The abdominal aorta is normal in caliber. No retroperitoneal hematoma or para-aortic lymphadenopathy. The visualized portions of the kidneys and ureters are normal. There is diverticulosis of the sigmoid colon without diverticulitis. IMPRESSION: 1. No acute findings within the lumbosacral spine compared to 04/03/2016. 2. At L5-S1, there is moderate disc degeneration, disc bulge and facet arthropathy with chronic, severe left-sided neural foraminal stenosis at this level. 3. Sigmoid colon diverticulosis without diverticulitis. DICTATED BY: DIRK BRUMFIELD MD Assessment/Plan Assessment: This is a 51-year-old gentleman with a significant past medical history of chronic low back pain, with chronic lumbar spondylosis and radiculopathy, previous history of falls, and previous history of back surgeries presents for evaluation after a fall. Patient is actively followed by neurosurgery and is scheduled for back procedure in about 2 weeks. Assessment and plan #Fall Most likely secondary to radiculopathy as patient experienced foot drop and weakness of his lower extremity prior to his fall. Patient does have a L4-L5 radiculopathy which is one of the most common cause of foot drop and leg weakness. Patient also has peripheral neuropathy that can be contributing to increased risk of falls while ambulating. CT head is unremarkable for any bleed. Plan Will obtain PT tomorrow morning #Acute on chronic low back pain Patient chronic back pain secondary from lumbar radiculopathy and foraminal stenosis has been exacerbated by today's fall. Patients account of loss of bowel and urinary incontinence was initially concerning for cauda equina syndrome/spinal compression, however the symptoms are not new, and physical examination was unremarkable for any saddle anesthesia, babinski pathology, and rectal tone was appreciated. Plan * We'll start Medrol Dosepak per neurosurgery recommendation * Neurosurgery on board (appreciated). No surgical intervention needed as of now. * Will switch from patient's home regimen of oxymorphone to OxyContin 20 mg twice a day and IV hydromorphone every 4 hours as needed for breakthrough pain * Will continue gabapentin 800 mg every 6 hours * Will continue duloxetine 60 mg for neuropathic pain As Ranked By This Provider Problem List: 1. Back pain 2. Fall Core Measures/Miscellaneous Acute Coronary Syndrome ACS Diagnosis: No Cerebrovascular Accident CVA/TIA Diagnosis: No Congestive Heart Failure CHF Diagnosis: No Venous Thromboembolism VTE Risk Factors: Age > 40 [address] [facility] VTE prophylaxis d/t: No contraindications No VTE Pharm Prophylaxis d/t: No contraindications VTE Diagnosis: No VTE Type: NONE VTE Confirmed by (Test): NONE Severe Sepsis Severe Sepsis Present: No Septic Shock Septic Shock Present: No Miscellaneous Documentation Attending Case Discussed With: JOEL WILLS MD Primary Care Physician: MIRTHA GRAY MD Patient sees these Specialists Neurosurgery Level of Patient Care: General Medicine SHADY ELE 09/15/166: Resident Review Statement Resident Statement: examined this patient, discussed with rn international, agreed with rn international Other Findings: Patient is a 51-year-old gentleman with past medical history of history of chronic lower back pain status post 3 back traumas and surgery,with resultant radiculopathy and left foot drop ,follows up with Dr. Marrero (neurosurgery) and Dr. Aj (pain management), in outpatient setting, presented to the ED after fall. Patient was recently admitted to [facility] after a fall ,worsening lower back pain and left lower extremity radiculopathy and was supposed to be discharged to short-term rehabilitation but patient refused at that time and left AGAINST MEDICAL ADVICE. Since the discharge patient mentioned that his lower back pain is getting worse ,radiating down both legs, associated with urinary and bowel incontinence at times(thats chonic per pt and his neurosurgeon is aware pf it ). He is supposed to have low back surgery in approximately 2 weeks by a neurosurgeon. He has left foot drop, after the last back surgery, had a couple of falls recently at home without any evidence of injury. Today his right foot gave way while he was walking down the stairs, fell forward , straight down almost 20 steps.Denied any dizziness/lightheadedness/headaches before and after the fall, did not report any loss of consciousness. Did not have any episode of urinary incontinence today. Denied any chest discomfort or breathing palpitations. No bowel habit complaints In the ED patient was given IV Solu-Medrol 125 mg, Valium, Dilaudid. Vitals on admission temperature 97.8, pulse 92, respiratory 20, blood pressure 152/100 on room air General Appearance: Alert and oriented 3 , moderate distress Skin: Grossly normal HEENT: PEERLA Neck: Supple, No JVD Cardiovascular: Regular Rate, Normal S1, Normal S2, No Murmurs Lungs: Decreased respirations in the left lower lung bases Abdomen: Normal Bowel Sounds, left lower quadrant tenderness without any rebound. Neurological: Normal Speech, Strength at 5/5 in the upper extremity, motor strength 5 x 4 in the lower extremities(most likely due to point lumbar tenderness), sensory slightly diminished on the lateral aspects of both feet to sensation. No signs of saddle anesthesia. Cranial nerves II through XII grossly intact. Cerebellar testing is unremarkable. Patellar reflexes are 2+ bilaterally. Extremities: No Clubbing, No Cyanosis, No Edema. Vascular: Normal Pulses . Pertinent labs: Normal WBC count which is stable normal PCP U tox positive for opioids CT head and cervical spine:No acute intracranial hemorrhage or acute skull fracture. No acute fracture or dislocation of cervical spine. Lumbar CT scan:t L5-S1, there is moderate disc degeneration, disc bulge and facet arthropathy with chronic,severe left-sided neural foraminal stenosis at this level. Assessment and plan: 1. Intractable lower back pain due to severe left-sided neural foraminal stenosis(status post mechanical fall without any evidence of new fractures/disc herniations) * We'll admit the patient for pain management the [facility] floor * has been consulted over the phone by ED physician, as patient is neurologically intact, without any evidence of spinal cord compression, no need of any acute surgical interventions at this time. * As per neurosurgery recommendations will start the patient on Medrol taper pack, starting tomorrow as patient received one-time dose of IV Solu-Medrol 125 mg in the ED. * Pain management: Continue home dose of OxyContin 20 mg twice a day, with IV Dilaudid 2 mg every 3 hours for breakthrough pain. * Continue gabapentin 8 mg every 6 hours for neuropathy. * Moderate to severe pain controlled with by mouth Dilaudid. * PT consult in the morning. * Watch for any hemodynamic stability. 2. History of anxiety and depression: * Continue Cymbalta. 3. Moderate dysphagia pain control with Dilaudid 4. DVT prophylaxis with subcutaneous Lovenox Patient is full code. ELMA MARLOW, [facility] 09/16/16 0013: Attending MD Review Statement Attending Statement Attending MD Statement: examined this patient, discuss w/resident/PA/PRODUCTION LINE ASSEMBLER, agreed w/resident/PA/PRODUCTION LINE ASSEMBLER Attending Assessment/Plan: 51 yo M with h/o anxiety/depression, chronic lumbar radiculopathy, chronic lower back pain, left foot drop from previous disc excision (2006) s/p surgery, is here s/p mechanical fall today with resultant acute on chronic low back pain. He reports his right leg gave away causing him to fall. Reports chronic occasional urinary and fecal incontinence. He follows neurosurgeon Dr. Marrero and is scheduled for laminectomy on September 24. He also sees pain management Dr. Aj who prescribes opiates. Patient was last admitted for similar in Mar 2016, when he left AMA as he was suggested STR, but he wanted to go home and continue PT. Vitals stable except for elevated BP in the setting of pain. Neuro exam: AAO, power 5/5 UE, 4/5 LE, chronic left foot drop, reduced sensation lateral thigh and medial leg, reflexes 2+, SLR +30 degrees, spinal tenderness L1-5. No saddle anesthesia, rectal tone intact. Abrasions to left upper extremity and right lower extremity 2/2 fall. Labs unremarkable except for Utox positive for opiates. CT head/cervical spine, Xray pelvis/ hip and right shoulder negative. CT lumbar spine moderate disc degeneration L5-S1 with disc bulge and facet arthropathy, chronic severe left sided foraminal stenosis. 1. Acute on chronic low back pain. GM admit, fall precautions, neurochecks Q4, pain management with IV dilaudid 2 mg Q3P, continue home meds PO dilaudid and Opana (change to oxycontin). Continue gabapentin. Patient reports that Lidoderm patch did not help with the pain. Will add valium 5 mg Q6 PRN for muscle spasms. ER PA discussed with Dr. Marrero who advised Medrol dose pack and pain management. Patient should follow up as outpatient for his scheduled surgery. No acute intervention at this point. PT eval in AM. 2. Hypertension in the setting of pain. Ensure adequate pain control. If BP persistently elevated, will consider initiating ACEI or CCB. 3. Smoking cessation counseling, nicotine patch. DVT ppx Lovenox. Full code.
--- NOTE | 2016-09-15 22:20 | Admission Certification ---
Admission Certification Certification Statement - As attending physician, I certify that at the time of - admission, based on clinical presentation, severity of - symptoms, need for further diagnostic testing and - therapeutic interventions, and risk of adverse outcomes - without in-hospital treatment, in my clinical assessment, - this patient requires an acute hospital stay for a minimum - of two nights or longer. I have also considered psychsocial - factors such as support system, advanced age, financial - issues, cognitive issues, and failed out-patient treatments, - past re-admission history, safety of patient, and lack of - compliance as applicable. Specific rationale supporting this admission is: Acute on chronic low back pain.
[2016-09-15 22:25] VITALS: BP 172/118
[2016-09-16 00:34] VITALS: BP 164/98
--- NOTE | 2016-09-16 02:29 | NUR ---
LATE ENTRY: PT ARRIVED TO FLOOR FROM ER WITH DISTRIBUTION STAFF. A/OX3, RA , BP 172/118 P 80. # 420 MADE AWARE. BACK PAIN PAIN 04/23, SEE EMAR. PT PRESENTS WITH MULTIPLE SUPERFICIAL ABRASIONS TO ALL EXTREMITIES, R ELBOW, AND R SIDE FROM RIB CAGE TO HIP BONE. WILL CONTINUE TO MONITOR
[2016-09-16 06:40] VITALS: BP 124/72
[2016-09-16 08:19] LABS: ABSOLUTE BASOPHIL COUNT 0 /CUMM (0.0-0.2); ABSOLUTE EOSINOPHIL COUNT 0 /CUMM (0.0-0.7); ABSOLUTE GRANULOCYTE CT 6.3 /CUMM (1.4-6.5); ABSOLUTE LYMPH COUNT 0.5 /CUMM (1.2-3.4); ABSOLUTE MONOCYTE COUNT 0 /CUMM (0.10-0.60); BASOPHIL % 0 % (0.0-2.0); EOSINOPHIL % 0 % (0-5); GRANULOCYTE % 92.7 % (42.2-75.2); HEMATOCRIT 46.9 % (42-52); MEAN CORPUSCULAR HGB 30.2 PG (27.0-31.0); MEAN CORPUSCULAR HGB CONC 34.2 G/DL (33.0-37.0); MEAN CORPUSCULAR VOLUME 88.3 FL (80.0-94.0); MEAN PLATELET VOLUME 7.7 FL (7.4-10.4); PLATELET COUNT 226 /CUMM (130-400); RBC DISTRIBUTION WIDTH 13.6 % (11.5-14.5); RED BLOOD CELL CT 5.31 /CUMM (4.70-6.10); WHITE BLOOD CELL COUNT 6.8 /CUMM (4.8-10.8)
--- NOTE | 2016-09-16 10:00 | NUR ---
NURSING NOTE: THIS NURSE NOTICED A SECOND HAND PAPER MACHINE IN THE PATIENT'S BED DURING HER MED PASS. THE PATIENT STATED IT MUST HAVE FALLEN OUT OF HIS JACKET POCKET AND HE DID NOT INTEND TO USE IT. SECOND HAND PAPER MACHINE WAS TAKEN AND LOCKED IN THE MEDICATION CABINET IN HIS MED BOX. PATIENT IS HAPPY THE SECOND HAND PAPER MACHINE IS LOCKED UP AT THIS TIME. WILL RETURN UPON DISCHARGE.
--- NOTE | 2016-09-16 11:03 | PN- Housestaff ---
See Addendum Subjective Follow-up For: fall back pain Subjective: Pt states that his pain is still uncontrolled. However, as he was speaking with me he was falling asleep. No other complaints or evernight events. Review of Systems Constitutional: Reports: weakness. Denies: chills, fever. EENTM: Reports: no symptoms. Cardiovascular: Denies: chest pain, palpitations. Respiratory: Denies: cough, short of breath. Gastrointestinal: Reports: constipation. Genitourinary: Reports: no symptoms. Musculoskeletal: Reports: back pain, joint pain, joint swelling, muscle pain, muscle stiffness. Skin: Reports: no symptoms. Objective Last 24 Hrs of Vital Signs/I&O Vital Signs Date Time Temp Pulse Resp B/P Pulse O2 O2 Flow FiO2 Ox Delivery Rate 09/16 0640 96.1 91 20 124/72 93 / 0034 78 164/98 09/15 2225 98.2 80 22 172/118 92 Room Air / 2155 97.6 80 18 155/92 96 Room Air Room Air 09/15 1926 97.5 78 18 167/95 96 Room Air Room Air / 1556 97.8 92 20 152/100 95 Room Air Intake & Output / 1600 03/05 0800 03/05 0000 Intake Total 240 Output Total 775 Balance -535 Intake, Oral 240 Output, Urine 775 Patient 99.79 kg Weight Physical Exam General Appearance: Alert, Oriented X3, Cooperative, No Acute Distress Skin: No Significant Lesion HEENT: Atraumatic, PERRLA Neck: Supple Cardiovascular: Regular Rate, Normal S1, Normal S2 Lungs: Normal Air Movement Abdomen: Soft, No Tenderness Extremities: No Edema, Normal Pulses, No Tenderness/Swelling Assessment/Plan Assessment: This is a 51-year-old gentleman with a significant past medical history of chronic low back pain, with chronic lumbar spondylosis and radiculopathy, previous history of falls, and previous history of back surgeries presents for evaluation after a fall. Patient is actively followed by neurosurgery and is scheduled for back procedure in about 2 weeks. Assessment and plan #Fall: Most likely secondary to radiculopathy as Patient does have a L4-L5 radiculopathy Patient also has peripheral neuropathy that can be contributing to increased risk of falls while ambulating. CT head is unremarkable for any bleed * PT eval #Acute on chronic low back pain: Patient chronic back pain secondary from lumbar radiculopathy and foraminal stenosis has been exacerbated by fall. Patients account of loss of bowel and urinary incontinence was initially concerning for cauda equina syndrome/spinal compression, however the symptoms are not new, and physical examination was unremarkable for any saddle anesthesia, babinski pathology, and rectal tone was appreciated. * We'll start Medrol Dosepak per neurosurgery recommendation * Neurosurgery on board (appreciated). No surgical intervention needed as of now. * Will switch from patient's home regimen of oxymorphone to OxyContin 20 mg twice a day and IV hydromorphone every 4 hours as needed for breakthrough pain. Pt states his regimen is not adequate at this time. We will change his meds as apropriate. * Will continue gabapentin 800 mg every 6 hours * Will continue duloxetine 60 mg for neuropathic pain Problem List: 1. Lumbar radiculopathy, chronic 2. Intractable back pain 3. Back pain 4. Hypertension 5. Fall 6. Low back strain Pain Ratin Pain Location: back Pain Goal: Remain pain free Pain Plan: current reg Tomorrow's Labs & Rationales: neva bakerp
[2016-09-16 16:17] VITALS: BP 132/92
--- NOTE | 2016-09-16 22:05 | NUR ---
PT C/O 03/24 PAIN AT APPROX 2009, PRN DOSE OF DILAUDID GIVEN AT 1900 AND IT WAS TOO EARLY FOR PO DOSE. SPOKE WITH DR ANDERSON, WHO ORDERED A ONE TIME DOSE OF 1MG IV DILAUDID. CONTINUE TO OFFER PO WHEN AVAILABLE. DIFFICULT MANAGING PAIN. CONTINUE TO MONITOR.
[2016-09-16 23:42] VITALS: BP 128/78
[2016-09-17 06:15] VITALS: BP 157/99
[2016-09-17 08:54] LABS: ABSOLUTE BASOPHIL COUNT 0 /CUMM (0.0-0.2); ABSOLUTE EOSINOPHIL COUNT 0 /CUMM (0.0-0.7); ABSOLUTE GRANULOCYTE CT 7.7 /CUMM (1.4-6.5); ABSOLUTE LYMPH COUNT 1.4 /CUMM (1.2-3.4); ABSOLUTE MONOCYTE COUNT 0.5 /CUMM (0.10-0.60); BASOPHIL % 0.3 % (0.0-2.0); EOSINOPHIL % 0.3 % (0-5); GRANULOCYTE % 79.1 % (42.2-75.2); HEMATOCRIT 44.7 % (42-52); MEAN CORPUSCULAR HGB 29.8 PG (27.0-31.0); MEAN CORPUSCULAR HGB CONC 33.4 G/DL (33.0-37.0); MEAN CORPUSCULAR VOLUME 89.2 FL (80.0-94.0); MEAN PLATELET VOLUME 7.9 FL (7.4-10.4); PLATELET COUNT 198 /CUMM (130-400); RBC DISTRIBUTION WIDTH 13.8 % (11.5-14.5); RED BLOOD CELL CT 5.01 /CUMM (4.70-6.10); WHITE BLOOD CELL COUNT 9.7 /CUMM (4.8-10.8)
--- NOTE | 2016-09-17 09:29 | PN- Housestaff ---
CHRISTIAN MARLOW,MALICK 09/17/16 0927: Subjective Follow-up For: Acute on chronic back pain Subjective: I saw and examined the patient today morning He reports significant pain in his back, slightly improving with dilaudid and recurring back. He reports significant tingling and numbness over both the feet. Spasmodic pain. Requested to increse dilaudid frequency. Review of Systems Constitutional: Reports: see HPI. Comments: ROS negative except the above. Objective Last 24 Hrs of Vital Signs/I&O Vital Signs Date Time Temp Pulse Resp B/P Pulse O2 O2 Flow FiO2 Ox Delivery Rate 09/17 614 98.0 70 18 157/99 97 09/16 2342 97.8 74 20 128/78 94 Room Air 09/16 1617 97.9 82 20 132/92 93 Room Air Intake & Output 09/17 1600 09/17 0800 09/17 0000 Intake Total 260 720 Output Total 550 950 Balance -290 -230 Intake, IV 40 Intake, Oral 220 720 Output, Urine 550 950 Physical Exam General Appearance: Alert, Oriented X3, Cooperative, Moderate Distress Skin: No Rashes, abrasions on left upper and lower extremity. HEENT: Atraumatic, PERRLA Neck: Supple Cardiovascular: Normal S1, Normal S2, No Murmurs Lungs: Clear to Auscultation, Normal Air Movement Abdomen: Normal Bowel Sounds, Soft, No Tenderness Neurological: Normal Speech, Normal Tone, Cranial Nerves 3-12 NL, decreased strength on lower extremities 3/5 bilaterally. decreased sensations on both feet. brisk knee reflex. babinski negative. Extremities: No Clubbing, No Cyanosis, No Edema Current Medications: Current Medications Sig/Sarwat Start time Last Medication Dose Route Stop Time Status Admin Acetaminophen 650 MG Q6P PRN 09/15 2114 AC PO Diazepam 5 MG Q6-PRN PRN 09/16 0545 AC 09/17 PO 0723 Duloxetine HCl 60 MG QPM 09/15 2200 AC 09/16 PO 2140 Enoxaparin Sodium 40 MG DAILY 09/16 1000 AC 09/17 SC 0724 Gabapentin 800 MG Q6 09/15 2359 AC 09/17 PO 0622 Hydromorphone HCl 2 MG Q2P PRN 09/17 0915 AC IV Hydromorphone HCl 1 MG ONCE ONE 09/16 2014 DC 09/16 IV 09/16 Hydromorphone HCl 1 MG ONCE ONE 09/16 1445 DC 09/16 IV 09/16 1446 1453 Hydromorphone HCl 4 MG Q6-PRN PRN 09/15 2199 AC 09/16 PO 2336 Hydromorphone HCl 2 MG Q3P PRN 09/15 220 DC 09/17 IV 0720 Methylprednisolone 4 MG 09/18 AC PO 09/20 220 Methylprednisolone 8 MG 09/17 AC PO 09/17 220 Methylprednisolone 4 MG 09/17 AC 09/17 PO 09/21 0701 0622 Methylprednisolone 4 MG 09/16 AC 09/16 PO 09/18 2000 185 Methylprednisolone 4 MG 1300 09/16 1300 AC 09/16 PO 09/19 1301 1220 Methylprednisolone 8 MG 0700,09/16 DC 09/16 PO 09/16 220 2140 Nicotine 14 MG DAILY 09/16 1000 AC 09/17 TOP 0724 Oxycodone HCl 30 MG Q8 09/17 1400 AC PO Oxycodone HCl 20 MG Q8 09/16 2200 DC PO Oxycodone HCl 20 MG Q8 09/16 1500 DC 09/17 PO 0624 Oxycodone HCl 20 MG BID 09/15 2199 DC 09/16 PO 0854 Polyethylene Glycol 17 GM DAILY 09/16 1000 AC 09/17 PO 0724 Senna/Docusate Sodium 2 TAB DAILY 09/16 1000 AC 09/17 PO 0725 Last 24 Hrs of Lab/Juvenal Results Last 24 Hrs of Labs/Mics: Laboratory Tests 09/17/16 0635: Anion Gap 5, Estimated GFR > 60, BUN/Creatinine Ratio 24.4, CBC w Diff NO MAN DIFF REQ, RBC 5.01, MCV 89.2, MCH 29.8, RDW 13.8, MPV 7.9, Gran % 79.1 H, Lymphocytes % 14.7 L, Monocytes % 5.6, Eosinophils % 0.3, Basophils % 0.3, Absolute Granulocytes 7.7 H, Absolute Lymphocytes 1.4, Absolute Monocytes 0.5, Absolute Eosinophils 0, Absolute Basophils 0, PUBS MCHC 33.4 Lines/Diet/Fluids Lines: peripheral lines Assessment/Plan Assessment: This is a 51-year-old gentleman with a significant past medical history of chronic low back pain, with chronic lumbar spondylosis and radiculopathy, previous history of falls, and previous history of back surgeries presents for evaluation after a fall. Patient is actively followed by neurosurgery and is scheduled for back procedure in about 2 weeks. Assessment and plan #Fall: Most likely secondary to radiculopathy as Patient does have a L4-L5 radiculopathy Patient also has peripheral neuropathy that can be contributing to increased risk of falls while ambulating. CT head is unremarkable for any bleed * PT eval #Acute on chronic low back pain: Patient chronic back pain secondary from lumbar radiculopathy and foraminal stenosis has been exacerbated by fall. Patients account of loss of bowel and urinary incontinence was initially concerning for cauda equina syndrome/spinal compression, however the symptoms are not new, and physical examination was unremarkable for any saddle anesthesia, babinski pathology, and rectal tone was appreciated. * We'll start Medrol Dosepak per neurosurgery recommendation * Neurosurgery on board (appreciated). No surgical intervention needed as of now. * Will switch from patient's home regimen of oxymorphone to OxyContin 30 mg twice a day and IV hydromorphone 2mg Q2 hours as needed for breakthrough pain. oral Dilaudid 4mg Q6PRN * Will continue gabapentin 800 mg every 6 hours * Will continue duloxetine 60 mg for neuropathic pain Problem List: 1. Lumbar radiculopathy, chronic 2. Intractable back pain 3. Laceration of hand, right 4. Hypertension 5. Fall Pain Ratin Pain Location: back pain radiating all the way to the feet Pain Goal: Pain 7 or less Pain Plan: Dilaudid Oxycontin Tomorrow's Labs & Rationales: none SAIGE LEVY MD 09/17/16 1135: Attending MD Review Statement Attending Statement Attending MD Statement: examined this patient, discuss w/resident/PA/LIFT SLAB OPERATOR, agreed w/resident/PA/LIFT SLAB OPERATOR, reviewed EMR data (avail), discussed with nursing, discussed with case mgmt, amended to note Attending Assessment/Plan: Patient seen and examined, not feeling well. Complains off excruciating pain in his back as well as going down into his lower extremities with sciatica. Claims that he needs dilaudid more often. Vital Signs Date Time Temp Pulse Resp B/P Pulse O2 O2 Flow FiO2 Ox Delivery Rate 09/17 0615 98.0 70 18 157/99 97 09/16 2342 97.8 74 20 128/78 94 Room Air 09/16 1617 97.9 82 20 132/92 93 Room Air on exam; aox3, nad. cv; s1,s2, rrr resp; clear abd; soft, nt, bs+ ext; no edema Laboratory Tests 09/17 634 Chemistry Sodium (137 - 145 mmol/L) 141 Potassium (3.5 - 5.1 mmol/L) 4.6 Chloride (98 - 107 mmol/L) 106 Carbon Dioxide (22 - 30 mmol/L) 30 Anion Gap (5 - 16) 5 BUN (9 - 20 mg/dL) 22 H Creatinine (0.7 - 1.2 mg/dL) 0.9 Estimated GFR (>60 ml/min) > 60 BUN/Creatinine Ratio (7 - 25 %) 24.4 Hematology CBC w Diff NO MAN DIFF REQ WBC (4.8 - 10.8 /CUMM) 9.7 RBC (4.70 - 6.10 /CUMM) 5.01 Hgb (14.0 - 18.0 G/DL) 14.9 Hct (42 - 52 %) 44.7 MCV (80.0 - 94.0 FL) 89.2 MCH (27.0 - 31.0 PG) 29.8 RDW (11.5 - 14.5 %) 13.8 Plt Count (130 - 400 /CUMM) 198 MPV (7.4 - 10.4 FL) 7.9 Gran % (42.2 - 75.2 %) 79.1 H Lymphocytes % (20.5 - 51.1 %) 14.7 L Monocytes % (1.7 - 9.3 %) 5.6 Eosinophils % (0 - 5 %) 0.3 Basophils % (0.0 - 2.0 %) 0.3 Absolute Granulocytes (1.4 - 6.5 /CUMM) 7.7 H Absolute Lymphocytes (1.2 - 3.4 /CUMM) 1.4 Absolute Monocytes (0.10 - 0.60 /CUMM) 0.5 Absolute Eosinophils (0.0 - 0.7 /CUMM) 0 Absolute Basophils (0.0 - 0.2 /CUMM) 0 PUBS MCHC (33.0 - 37.0 G/DL) 33.4 A/P; This is a 51-year-old gentleman with a significant past medical history of chronic low back pain, with chronic lumbar spondylosis and radiculopathy, previous history of falls, and previous history of back surgeries presents for evaluation after a fall. Patient has been followed by neurosurgery and is scheduled to have a procedure done in middle of September. Neurosurgery imaging studies are consistent with disc degeneration, disc bulge and facet arthropathy but no change compared to the previous study. We have increased the dose of his OxyContin as well as decrease the frequency of when necessary Dilaudid. Patient will be encouraged to participate with physical therapy once pain is better controlled. Once the pain is slightly better controlled with IV regimen we will likely switch him to oral Dilaudid. Patient had already scheduled to have surgery done with Dr. Marrero from neurosurg. Continue Medrol Dosepak. Patient is also on diazepam. DVT prophylaxis: hep sq.
[2016-09-17 15:29] VITALS: BP 160/92
[2016-09-17 22:58] VITALS: BP 138/63
--- NOTE | 2016-09-17 23:12 | NUR ---
ALERT AND ORIENTED X 3. VITAL SIGNS STABLE. DENIES CHEST PAIN. + PULSES MEDICATION GIVEN FOR PAIN. ON ROOM AIR. ABRASION NOTED TO L FOREARM. PATIENT RESTING AT THIS TIME. WILL CONTINUE TO MONITOR
[2016-09-18 06:46] VITALS: BP 140/100
--- NOTE | 2016-09-18 07:26 | PN- Housestaff ---
CHRISTIAN MARLOW,MALICK 09/18/16 0726: Subjective Follow-up For: Acute on chronic back pain Subjective: I saw and examined the patient today morning. He reports he is doing much better on IV pain medications. reports his pain is 8 /10 from 04/23. Appears slept well. other treviño no acute events overnight. He is not willing for any changes in his pain medication dosages. Review of Systems Constitutional: Reports: see HPI. Musculoskeletal: Reports: back pain, joint pain, muscle pain, muscle stiffness. Comments: ROS negative except the above. Objective Last 24 Hrs of Vital Signs/I&O Vital Signs Date Time Temp Pulse Resp B/P Pulse O2 O2 Flow FiO2 Ox Delivery Rate 09/18 0646 96.0 65 18 140/100 96 Room Air 09/17 2258 97.6 68 20 138/63 97 Room Air 09/17 1529 97.5 73 20 160/92 96 Room Air Intake & Output 09/18 0800 09/18 0000 09/17 1600 Intake Total 450 350 Output Total 600 Balance -150 350 Intake, Oral 450 350 Output, Urine 600 Physical Exam General Appearance: Alert, Oriented X3, Cooperative Skin: No Rashes, abrasions on the left upper and lower extremities HEENT: Atraumatic Neck: Supple Cardiovascular: Normal S1, Normal S2, No Murmurs Lungs: Clear to Auscultation, Normal Air Movement Abdomen: Normal Bowel Sounds, Soft, No Tenderness Neurological: Normal Speech, Cranial Nerves 3-12 NL, Reflexes 2+, decreased strength 4/5 lower extremities. babinski negative Extremities: No Clubbing, No Cyanosis, No Edema Vascular: Normal Pulses, Pulses Symmetrical Current Medications: Current Medications Sig/Sarwat Start time Last Medication Dose Route Stop Time Status Admin Acetaminophen 650 MG Q6P PRN 09/15 2114 AC PO Diazepam 5 MG Q6-PRN PRN 09/16 0545 AC 09/18 PO 0023 Duloxetine HCl 60 MG QPM 09/15 2199 AC 09/17 PO 2128 Enoxaparin Sodium 40 MG DAILY 09/16 1000 AC 09/17 SC 0724 Gabapentin 800 MG Q6 09/15 2359 AC 09/18 PO 0530 Hydromorphone HCl 2 MG Q2P PRN 09/17 0915 AC 09/18 IV 0530 Hydromorphone HCl 4 MG Q6-PRN PRN 09/15 2200 AC 09/16 PO 2336 Hydromorphone HCl 2 MG Q3P PRN 09/15 2200 DC 09/17 IV 0720 Methylprednisolone 4 MG 09/18 AC PO 09/20 2200 Methylprednisolone 8 MG 09/17 DC 09/17 PO 09/17 2201 2128 Methylprednisolone 4 MG 0700 09/17 0700 AC 09/18 PO 09/21 0701 0531 Methylprednisolone 4 MG 09/16 AC 09/17 PO 09/18 2000 1930 Methylprednisolone 4 MG 1300 09/16 1300 AC / PO 09/19 1301 1335 Nicotine 14 MG DAILY 09/16 1000 AC 09/17 TOP 0724 Oxycodone HCl 30 MG Q8 09/17 1400 AC 09/18 PO 0640 Oxycodone HCl 20 MG Q8 09/16 1500 DC 09/17 PO 0624 Patient Medication 1 ED .STK-MED ONE 09/17 1426 ND Teaching ED 09/17 1427 Polyethylene Glycol 17 GM DAILY 09/16 1000 AC 09/17 PO 0724 Senna/Docusate Sodium 2 TAB DAILY 09/16 1000 AC 09/17 PO 0725 Lines/Diet/Fluids Lines: peripheral lines Assessment/Plan Assessment: This is a 51 YO Mwith a significant past medical history of chronic low back pain, with chronic lumbar spondylosis and radiculopathy, previous history of falls, and previous history of back surgeries presents for evaluation after a fall. Patient is actively followed by neurosurgery and is scheduled for back procedure in about 2 weeks. Assessment and plan #Fall: Most likely secondary to radiculopathy as Patient does have a L4-L5 radiculopathy Patient also has peripheral neuropathy that can be contributing to increased risk of falls while ambulating. CT head is unremarkable for any bleed * PT eval - suggesting STR #Acute on chronic low back pain: Patient chronic back pain secondary from lumbar radiculopathy and foraminal stenosis has been exacerbated by fall. Patients account of loss of bowel and urinary incontinence was initially concerning for cauda equina syndrome/spinal compression, however the symptoms are not new, and physical examination was unremarkable for any saddle anesthesia, babinski pathology, and rectal tone was appreciated. * On Neurosurgery on board (appreciated). No surgical intervention needed as of now. * He is receiving OxyContin 30 mg twice a day and IV hydromorphone 2mg Q2 hours as needed for breakthrough pain. oral Dilaudid 4mg Q6PRN despite which he reports that he is in lot of pain. * Will continue gabapentin 800 mg every 6 hours * Will continue duloxetine 60 mg for neuropathic pain * Tried to contact [facility] office - to inform that he is getting worse despite getting better. * we checked his CTPMP - it appears that patient is on pain medications like hydromorphine and Gabapentine, oxymorphine for a long time. DVT prophylaxis * SC lovenox Code Status * Full Code Problem List: 1. Lumbar radiculopathy, chronic 2. Intractable back pain 3. Fall 4. Hypertension Pain Ratin Pain Location: back radiating to both lower extemities Pain Goal: Pain 4 or less Pain Plan: Dilaudid Oxycontine Gabapentine 800mg Q8 Tomorrow's Labs & Rationales: None SAIGE LVEY MD 09/18/16 1305: Attending MD Review Statement Attending Statement Attending MD Statement: examined this patient, discuss w/resident/PA/ECHO TECHNOLOGIST, agreed w/resident/PA/ECHO TECHNOLOGIST, reviewed EMR data (avail), discussed with nursing, discussed with case mgmt, amended to note Attending Assessment/Plan: Patient seen and examined, not doing well at all. Remains in excruciating pain. Unable to move around 2/2 to pain in his back as well as lower extremities. Has been applying this menthol cream on his thighs. Vital Signs Date Time Temp Pulse Resp B/P Pulse O2 O2 Flow FiO2 Ox Delivery Rate 09/18 1015 97.0 75 20 140/70 94 Room Air 09/18 0646 96.0 65 18 140/100 96 Room Air 09/18 0000 97 Room Air 09/17 2258 97.6 68 20 138/63 97 Room Air 09/17 1529 97.5 73 20 160/92 96 Room Air on exam; aox3, mild-mod distress 2/2 to pain. cv; s1,s2, rrr. resp; clear abd; soft, nt, bs+ ext; no edema no labs. A/P; This is a 51-year-old gentleman with a significant past medical history of chronic low back pain, with chronic lumbar spondylosis and radiculopathy, previous history of falls, and previous history of back surgeries presents for evaluation after a fall. Patient has been followed by neurosurgery and is scheduled to have a procedure done in middle of September. Neurosurgery imaging studies are consistent with disc degeneration, disc bulge and facet arthropathy but no change compared to the previous study. At this point we'll continue his IV Dilaudid. Patient encouraged to take by mouth Dilaudid in between. We'll also continue his OxyContin. Please call neurosurgery Dr. Marrero and discussed the fact that patient's pain is not improved but actually has worsened. Patient is already getting Neurontin, diazepam as well as Medrol Dosepak. He should be working with physical therapy but he says that he is in too much pain to do that. DVT px: Lovenox.
[2016-09-18 10:15] VITALS: BP 140/70
--- NOTE | 2016-09-18 10:24 | NUR ---
NURSING NOTE: MST OBSERVED "BIOFREEZE" GEL AT PATIENT'S BEDSIDE, PATIENT STATES HE USES IT ON HIS THIGHS. ATTENDING PHYSICIAN DR. PATINO OBSERVED AND STATED THIS IS ALRIGHT FOR PATIENT TO USE IN HIS ROOM. WILL CONTINUE TO MONITOR.
--- NOTE | 2016-09-18 11:00 | NUR ---
NURSING NOTE: PATIENT OOB WITH PHYSICAL THERAPY TO BATHROOM. PATIENT AX2 WITH RW. PATIENT STATES HE WAS IN EXCRUCIATING PAIN AND HEARD A "POP" FROM HIS BACK. PAIN MEDICATIONS GIVEN PER ORDER. REPOSITIONING IN BED TO L SIDE. VALIUM GIVEN PER ORDER. MEDICAL TEAM NOTIFIED. WILL CONTINUE TO MONITOR.
[2016-09-18 14:30] VITALS: BP 134/70
[2016-09-18 22:28] VITALS: BP 138/70
--- NOTE | 2016-09-18 23:15 | NUR ---
NURSING NOTE: MST FOUND PT ON BOTH KNEES LEANING OVER EDGE OF BED. RAPID RESPONSE CALLED. VITAL SIGNS: TEMP 97.3, BP 132/70, HR 77, O2 96% ON RA, BLOOD SUGAR 94. PT STATES HE DID NOT HIT HIS HEAD. PT WAS HELPED BACK TO BED SAFELY. BED ALARM IN PLACE. CALL MCGUIRE IN REACH. SEE RAPID RESPONSE SHEET. NO FURTHER ORDERS AT THIS TIME. WILL CONTINUE TO MONITOR.
[2016-09-18 23:30] VITALS: BP 132/70
--- NOTE | 2016-09-18 23:51 | Event Note ---
Event Note Event Note: Situation: Rapid response was activated after patient had a fall. Brief assessment: * Patient was found kneeling down by the bedside. He reported that he was in pain and was trying to move around and fell on his knee. Patient was alert oriented with no confusion. Denied hitting his head. * Vital signs were unremarkable. * The the distance between the floor and the bed was noted to be small, and patient had a low impact fall to his knees. Assessment and plan * As patient did not hit his head was alert oriented with no confusion and did not complain of any acute lower extremity pain, it was deemed that radiology workup was not necessary. * Bed alarm was placed.
[2016-09-19 07:30] VITALS: BP 114/76
--- NOTE | 2016-09-19 07:39 | PN- Housestaff ---
CHRISTIAN MARLOW,MALICK 09/19/16 0738: Subjective Follow-up For: Acute on chronic low back pain Subjective: Overnight events He had a low impact fall. set on a bed alarm. he is doing much better today, still in lot of pain but well controlled with current regimen. Had a single episode of urinary incontinence yesterday. Last BM yesterday. Review of Systems Constitutional: Reports: see HPI. Comments: ROS negative except the above. Objective Last 24 Hrs of Vital Signs/I&O Vital Signs Date Time Temp Pulse Resp B/P Pulse O2 O2 Flow FiO2 Ox Delivery Rate 09/19 07 96.2 66 20 114/76 93 Room Air 09/18 2330 97.3 77 20 132/70 09/18 2228 97.3 93 20 138/70 94 09/18 1430 97.3 75 20 134/70 95 Room Air 09/18 1015 97.0 75 20 140/70 94 Room Air Intake & Output 09/19 0800 09/19 0000 09/18 1600 Intake Total 340 900 Output Total 900 Balance -560 900 Intake, Oral 340 900 Output, Urine 900 Physical Exam General Appearance: Alert, Oriented X3, Cooperative, Mild Distress Skin: No Rashes, abrasions on the left lower and upper extremities HEENT: Atraumatic, PERRLA Neck: Supple Cardiovascular: Normal S1, Normal S2 Lungs: Normal Air Movement Abdomen: Normal Bowel Sounds, Soft, No Tenderness Neurological: Normal Speech, Normal Tone, Cranial Nerves 3-12 NL, decreased sensations, brisk reflexes, strength low on the right side. Extremities: No Clubbing, No Cyanosis, No Edema Vascular: Normal Pulses, Pulses Symmetrical Current Medications: Current Medications Sig/Sarwat Start time Last Medication Dose Route Stop Time Status Admin Acetaminophen 650 MG Q6P PRN 09/15 2114 AC PO Diazepam 5 MG Q6-PRN PRN 09/16 0545 AC 09/18 PO 2111 Duloxetine HCl 60 MG QPM 09/15 2199 AC 09/18 PO 2110 Enoxaparin Sodium 40 MG DAILY 09/16 1000 AC 09/18 SC 0832 Gabapentin 800 MG Q6 09/15 2359 AC 09/19 PO 0531 Hydromorphone HCl 2 MG Q2P PRN 09/17 0915 AC 09/19 IV 0532 Hydromorphone HCl 4 MG Q6-PRN PRN 09/15 2199 AC 09/16 PO 2336 Methylprednisolone 4 MG 09/18 220 AC 09/18 PO 09/20 220 2124 Methylprednisolone 4 MG 09/17 AC 09/19 PO 09/21 0701 0532 Methylprednisolone 4 MG 09/16 DC 09/18 PO 09/18 Methylprednisolone 4 MG 1300 09/16 1300 AC 09/18 PO 09/19 1301 1145 Nicotine 14 MG DAILY 09/16 1000 AC 09/18 TOP 0832 Oxycodone HCl 30 MG Q8 09/17 1400 AC 09/19 PO 0532 Polyethylene Glycol 17 GM DAILY 09/16 1000 AC 09/18 PO 0832 Ramelteon 8 MG ONCE ONE 09/18 2345 DC 09/19 PO 09/18 2346 0021 Senna/Docusate Sodium 2 TAB DAILY 09/16 1000 AC 09/18 PO 0832 Assessment/Plan Assessment: This is a 51 YO Mwith a significant past medical history of chronic low back pain, with chronic lumbar spondylosis and radiculopathy, previous history of falls, and previous history of back surgeries presents for evaluation after a fall. Patient is actively followed by neurosurgery and is scheduled for back procedure in about 2 weeks. Assessment and plan #Fall: Most likely secondary to radiculopathy as Patient does have a L4-L5 radiculopathy Patient also has peripheral neuropathy that can be contributing to increased risk of falls while ambulating. CT head is unremarkable for any bleed * PT eval - suggesting STR * Encouraged to walk around. #Acute on chronic low back pain: Patient chronic back pain secondary from lumbar radiculopathy and foraminal stenosis has been exacerbated by fall. Patients account of loss of bowel and urinary incontinence was initially concerning for cauda equina syndrome/spinal compression, however the symptoms are not new, and physical examination was unremarkable for any saddle anesthesia, babinski pathology, and rectal tone was appreciated. * As patient is getting lot of IV medications, contacted - she came evaluated the patient, thinks none of his symptoms are medically explained * If he continues to take IV medications - Surgery cannot be performed as he cannot tolerate post op pain * He was informed about the situation and his medication schedule is changed to oral * Currently on Hydromorphine 4mg Q 4-6hr PRN, Oxycontine 30mg Q8, Oxycodone 20mg Q4-6hrs PRN. * Will continue gabapentin 800 mg every 6 hours * Will continue duloxetine 60 mg for neuropathic pain * we checked his CTPMP - it appears that patient is on pain medications like hydromorphine and Gabapentine, oxymorphine for a long time. * Possible discharge tomorrow. DVT prophylaxis * SC lovenox Code Status * Full Code Problem List: 1. Lumbar radiculopathy, chronic 2. Intractable back pain 3. Back pain 4. Hypertension 5. Fall Pain Ratin Pain Location: back pain Pain Goal: Pain 4 or less Pain Plan: oxycontin Hydromorphine ORAL Tomorrow's Labs & Rationales: none MILDRED MARLOW,SAIGE 09/19/16 1301: Attending MD Review Statement Attending Statement Attending MD Statement: examined this patient, discuss w/resident/PA/FEATHER EDGER, agreed w/resident/PA/FEATHER EDGER, reviewed EMR data (avail), discussed with nursing, discussed with case mgmt, reviewed images, amended to note Attending Assessment/Plan: Patient seen and examined, continues to been excruciating back pain. Had a rapid response last night and he fell. He said that he was all covered up and fell out of the bed. He also had an episode of urinary incontinence. Patient remains on high doses of OxyContin as well as Dilaudid. Please get in touch base with the neurosurgeon to see if there is any additional planning or if they can keep on the surgery. Continue Medrol Dosepak, IV and oral narcotics. DVT prophylaxis: Lovenox.
--- NOTE | 2016-09-19 09:25 | Patient Discharge Instructions ---
Discharge Instructions General Discharge Information You were seen/treated for: Acute on chronic back pain Special Instructions: Please follow up with regarding surgery on saturday PLEASE DONT TAKE ANYTHING BY MOUTH FROM SATURDAY MIDNIGHT. Please take orthotics form office Please follow up with regarding pain management and restarting dilaudid oral Please follow up with your PCP in a week. Diet Continue normal diet: Yes Activity Activity Self Limited: Yes Acute Coronary Syndrome Inclusion Criteria At DC or during hospital stay patient has or had the following: ACS DIAGNOSIS No Discharge Core Measures Meds if any: Prescribed or Continued at Discharge Meds if any: NOT Prescribed or Continued at Discharge Congestive Heart Failure Inclusion Criteria At DC or during hospital stay patient has or had the following: CHF DIAGNOSIS No Discharge Core Measures Meds if any: Prescribed or Continued at Discharge Meds if any: NOT Prescribed or Continued at Discharge Cerebrovascular accident Inclusion Criteria At DC or during hospital stay patient has or had the following: CVA/TIA Diagnosis No Discharge Core Measures Meds if any: Prescribed or Continued at Discharge Meds if any: NOT Prescribed or Continued at Discharge Venous thromboembolism Inclusion Criteria VTE Diagnosis No VTE Type NONE VTE Confirmed by (Test) NONE Discharge Core Measures - Per Current guidelines, there needs to be overlap - treatment for the first 5 days of Warfarin therapy. - If discharged on Warfarin prior to 5 days of - overlap therapy, the patient will need to be - assessed for post discharge needs including - *Post discharge parental anticoagulation - *Warfarin and/or parental anticoagulation education - *Follow up date to check INR post discharge At least 5 days overlap therapy as Inpatient No Meds if any: Prescribed or Continued at Discharge Note: Overlap Therapy is Warfarin and Anticoagulant Meds if any: NOT Prescribed or Continued at Discharge
--- NOTE | 2016-09-19 11:27 | NUR ---
PHYSICAL THERAPY: ATTEMPTED TO SEE PT AT APPROX 9:30A, PT WAS RECEIVING HAND MASSAGE FROM VOLUNTEER. ASKED PT TO PARTICIPATE IN THERAPY. PT ASKED IF WE COULD COME BACK. ARRIVED BACK AT PT'S ROOM AT 11:30. PT REPORTS BEING IN EXTREME PAIN AND REFUSED TO PARTICIPATE AFTER HIS FALL EPISODE LAST NIGHT. TOLD PT WE WOULD ONLY COMPLETE THEREX IN BED, BUT PT REFUSED DUE TO PAIN. FOLLOW UP TOMORROW.
[2016-09-19 15:08] VITALS: BP 134/60
--- NOTE | 2016-09-19 15:58 | NUR ---
Went in to talk with pt because his primary nurse told me he was very upset. Pt states that he feels disrespected by Dr. Marrero. Pt states that his pain is not being taken serious and that he wants to leave. He was getting dilaudid 2mg iv every 2 hours and is now getting roxycodone 20mg every 4 to [address] Cordero and he is comming up to speak to the resident and the patient.
--- NOTE | 2016-09-19 17:49 | Cons- Neurosurgical ---
General Information and HPI Consulting Request Date of Consult: 09/19/16 Requested By: SAIGE LEVY MD Reason for Consult: intractable low back and leg pain, incontinence Source of Information: patient, old records, medical team Exam Limitations: no limitations History of Present Illness: Pt is a 51yo well known to me and followed as outpt for lumbar spondylosis and stenosis at L4/5, L5/S1 who has hx of left L5 radiculopathy and intractable LBP for prolonged time under care of chronic pain mangagement and recently scheduled for 2 level decompression and fusion for this Saturday at now presents with worsened pain after a slip and fall down stairs. He also reports episodes of urinary incontinence, bilat diffuse LE parasthesias, severe LBP which has been difficult for medical team to manage. Neurosurgery input requested. Allergies/Medications Allergies: Coded Allergies: NSAIDS (Non-Steroidal Anti-Inflamma (ANAPHYLAXIS - TONGUE SWELLS 01/02/16) Home Med List: Duloxetine HCl 60 MG CAPSULE.DR 1 CAP PO DAILY NERVE PAIN (Reported) Gabapentin (Neurontin) 800 MG TABLET 1 TAB PO Q6H NERVE PAIN (Reported) Hydromorphone HCl 4 MG TABLET 1 TAB PO 5 TIMES A DAY PAIN CONTROL (Reported) Oxymorphone HCl (Opana ER) 20 MG TAB.ER.12H 1 TAB PO BID PAIN (Reported) Current Medications: Current Medications Sig/Sarwat Start time Last Medication Dose Route Stop Time Status Admin Acetaminophen 650 MG Q6P PRN 09/155 AC PO Diazepam 5 MG Q6-PRN PRN 09/16 0545 AC 09/19 PO 1402 Duloxetine HCl 60 MG QPM 09/15 2200 AC 09/18 PO 2111 Enoxaparin Sodium 40 MG DAILY 09/16 1000 AC 09/19 SC 0930 Gabapentin 800 MG Q6 09/15 2359 AC 09/19 PO 1710 Hydromorphone HCl 2 MG Q2P PRN 09/17 0915 DC 09/19 IV 1410 Hydromorphone HCl 4 MG Q6-PRN PRN 09/15 2200 AC 09/16 PO 2336 Magnesium Hydroxide 30 ML AT BEDTIME PRN 09/19 1500 AC PO Methylprednisolone 4 MG 09/18 AC / PO 09/20 220 2124 Methylprednisolone 4 MG 0700 09/17 0700 AC 09/19 PO 09/21 0701 0532 Methylprednisolone 4 MG 2000 09/16 2000 DC 09/18 PO 09/18 Methylprednisolone 4 MG 1300 09/16 1300 DC 09/19 PO 09/19 1301 1402 Nicotine 14 MG DAILY 09/16 1000 AC 09/19 TOP 0930 Oxycodone HCl 20 MG Q4-6 PRN PRN 09/19 1445 AC 09/19 PO 1608 Oxycodone HCl 30 MG Q8 09/17 1400 AC 09/19 PO 1409 Patient Medication 1 ED .STK-MED ONE 09/19 1348 DC Teaching ED 09/19 1349 Polyethylene Glycol 17 GM DAILY 09/16 1000 AC 09/19 PO 0930 Ramelteon 8 MG .STK-MED ONE 09/19 0013 DC PO 09/19 0014 Ramelteon 8 MG ONCE ONE 09/18 2345 DC 09/19 PO 09/18 2346 0021 Senna/Docusate Sodium 2 TAB DAILY 09/16 1000 AC 09/19 PO 0930 Past History Medical History Neurological: migraine EENT: NONE Cardiovascular: hypertension Respiratory: NONE, SMOKER Gastrointestinal: ICONTINENCE AT TIMES Hepatic: NONE Renal: NONE Musculoskeletal: chronic back pain Psychiatric: anxiety, depression Endocrine: NONE Blood Disorders: NONE Cancer(s): NONE DIRECTOR PHARMACOVIGILANCE/Reproductive: NONE Surgical History Pertinent Surgical History: non-contributory Family History Relations & Conditions If Any: Relation not specified for: *No pertinent family history Psychosocial History Where Do You Live? Home Services at Home: None Smoking Status: Current Everyday Smoker ETOH Use: denies use Illicit Drug Use: denies illicit drug use Functional Ability ADLs Independent: dressing, eating, toileting, bathing. Review of Systems Review of Systems: smoking Exam & Diagnostic Data Vital Signs and I&O Vital Signs Date Time Temp Pulse Resp B/P Pulse O2 O2 Flow FiO2 Ox Delivery Rate 09/19 1508 97.5 80 20 134/60 94 Room Air 09/19 0730 96.2 66 20 114/76 93 Room Air 09/18 2330 97.3 77 20 132/70 09/18 2228 97.3 93 20 138/70 94 Intake & Output 09/19 1600 09/19 0800 /08 0000 09/18 1600 09/18 0800 09/18 0000 Intake Total 600 240 340 900 150 450 Output Total 250 600 900 500 600 Balance 350 -360 -560 900 -350 -150 Intake, IV 0 Intake, Oral 600 240 340 900 150 450 Number 0 Bowel Movements Output, Urine 250 600 900 500 600 Patient 99.79 kg Weight Physical Exam: Pt awake and alert, lying in bed. conversant and appropriate motor at least 4-4+/5 bilat LE and limited by pain except L DF 4-/5 and stable c /w recent exam in my office sensory c/w diffuse nondermatomal report of LT hypesthesia from groin to feet bilat DTR 2+ bilat knee, ankles, toes downgoing bilat, no clonus gait not tested Imaging Results: CT L-spine 09/15/16 reviewed and identifies chronic DDD at L4/5, L5/S1, transitional L/S junction. There is stable high grade L5/S1 left foraminal stenosis with potential L5 NR impingment, mild L4/5 retrolisthesis with prominent ant osteophytes, mild stenosis. No acute fx, dislocation, conus wnl Assessment/Plan Assessment/Plan Pt 51 yo male with longstanding low back and leg pain. He is scheduled for surgery next week at L4/5, L5/S1. I had long discussion with Mr. Garland regarding his present sympotms including subjective diffuse bilat parasthesias, global weakness with difficulty walking, and incontinence - all of which are poorly explained on the basis of his stable and chronic imaging findings. This, along with his need for increasing doses of opioid pain medications raises concern regarding the expected outcome from the procedure planned for next week and I spent considerable time counseling Mr Garland regarding reasonable expectations. I advised that a neurology evaluation may be helpful but he declined. He has already had outpt EMG c/w a left L5 radiculopathy which is expected based on the anatomy and imaging findings. I also expressed concern about the high dose of opioids and the anticipated difficulty managing his postop pain and strongly encouraged him to minimize use of such meds from now till surgery next Saturday if at all possible. With clear understanding of the risks, benefits and limitations of surgery, Mr. Garland is very insistant that we proceed. He missed his preop appointment with Dr. Fine for the second time but tells me he had the wrong date written down. At this point, I would recommend the following: -minimize narcotics - please consider contacting his pain physician, Dr. Dane Aj, in [place] -pt needs medical preop and clearance which now can not be done as oupt - CXR, EKG. CBCP, lytes, PT, PTT, ESR, MRSA nasal swab, UA -please rapidly taper steroids off in next 24-48 hours -hold lovenox 24 hours prior to OR -mobilize pt as much as possible to minimize atelectasis, DVT from lying in bed -Inspirometer to bedside, use 10X per hr while awake -call [employer] orthotics to have aspen contour LSO brace for pt preop (was to be done as outpt) -PT -NPO after MN Saturday 09/23 - pt is scheduled as first case 09/24 Thank you. Consult Acknowledgment - Thank you for your consult request. Attending MD Review Statement Attending Statement Attending MD Statement: examined this patient, discuss w/resident/PA/HEAD LINEMAN, discussed w/case mgmt, reviewed images
[2016-09-19 22:29] VITALS: BP 130/86
--- NOTE | 2016-09-20 00:17 | NUR ---
ALERT AND ORIENTED X 3. VITAL SIGNS STABLE. DENIES CHEST PAIN. + PULSES ON ROOM AIR. ASSIST X 1 W/RW. MEDICATIONS GIVEN FOR PAIN PATIENT RESTING AT THIS TIME. WILL CONTINUE TO MONITOR
--- NOTE | 2016-09-20 06:47 | PN- Housestaff ---
CHRISTIAN MARLOW,MALICK 09/20/16 0647: Subjective Follow-up For: Acute on chornic low back pain Subjective: I saw and examined the patient today morning He is doing better with the oral pain regimen. wants to go home. Review of Systems Constitutional: Reports: see HPI. Comments: ROS negative except the above. Objective Last 24 Hrs of Vital Signs/I&O Vital Signs Date Time Temp Pulse Resp B/P Pulse O2 O2 Flow FiO2 Ox Delivery Rate 09/19 2228 98.5 72 18 130/86 93 09/19 1508 97.5 80 20 134/60 94 Room Air 09/19 0730 96.2 66 20 114/76 93 Room Air Intake & Output 09/20 0809/20 0000 09/19 1600 Intake Total 400 600 Output Total 250 Balance 400 350 Intake, Oral 400 600 Output, Urine 250 Patient 99.79 kg Weight Physical Exam General Appearance: Alert, Oriented X3 Skin: No Rashes, No Breakdown HEENT: Atraumatic, PERRLA, EOMI Neck: Supple Cardiovascular: Normal S1, Normal S2, No Murmurs Lungs: Clear to Auscultation, Normal Air Movement Abdomen: Normal Bowel Sounds, Soft, No Tenderness Neurological: Normal Speech, Strength at 5/5 X4 Ext, Normal Tone, Sensation Intact Extremities: No Clubbing, No Cyanosis, No Edema Vascular: Normal Pulses, Pulses Symmetrical Current Medications: Current Medications Sig/Sarwat Start time Last Medication Dose Route Stop Time Status Admin Acetaminophen 650 MG Q6P PRN 09/15 2115 AC PO Diazepam 5 MG Q6-PRN PRN 09/16 0545 AC 09/19 PO 2154 Duloxetine HCl 60 MG QPM 09/15 220 AC 09/20 PO 0111 Enoxaparin Sodium 40 MG DAILY 09/16 1000 AC 09/19 SC 0930 Gabapentin 800 MG Q6 09/15 2359 AC 09/20 PO 0612 Hydromorphone HCl 2 MG Q2P PRN 09/17 0915 DC 09/19 IV 1410 Hydromorphone HCl 4 MG Q6-PRN PRN 09/15 2200 DC 09/19 PO 1814 Magnesium Hydroxide 30 ML AT BEDTIME PRN 09/19 1500 AC PO Methylprednisolone 4 MG 09/18 220 AC 09/20 PO 09/20 220 0111 Methylprednisolone 4 MG 0700 09/17 0700 AC 09/20 PO 09/21 0701 0613 Methylprednisolone 4 MG 1300 09/16 1300 DC 09/19 PO 09/19 1301 1402 Nicotine 14 MG DAILY 09/16 1000 AC 09/19 TOP 0930 Oxycodone HCl 20 MG Q4-6 PRN PRN 09/19 1445 AC 09/20 PO 0612 Oxycodone HCl 30 MG Q8 09/17 1400 AC 09/20 PO 0612 Patient Medication 1 ED .STK-MED ONE 09/19 1348 DC Teaching ED 09/19 1349 Polyethylene Glycol 17 GM DAILY 09/16 1000 AC 09/19 PO 0930 Ramelteon 8 MG ONCE ONE 09/19 2230 DC 09/19 PO 09/19 2231 2307 Senna/Docusate Sodium 2 TAB DAILY 09/16 1000 AC 09/19 PO 0930 Sodium Phosphate 1 UNIT ONCE ONE 09/20 0600 DC MD 09/20 0601 Assessment/Plan Assessment: This is a 51 YO Mwith a significant past medical history of chronic low back pain, with chronic lumbar spondylosis and radiculopathy, previous history of falls, and previous history of back surgeries presents for evaluation after a fall. Patient is actively followed by neurosurgery and is scheduled for back procedure coming saturday Assessment and plan #Fall: Most likely secondary to radiculopathy as Patient does have a L4-L5 radiculopathy Patient also has peripheral neuropathy that can be contributing to increased risk of falls while ambulating. CT head is unremarkable for any bleed * PT eval - suggesting STR * Encouraged to walk around, did well today and discharged home. #Acute on chronic low back pain: Patient chronic back pain secondary from lumbar radiculopathy and foraminal stenosis has been exacerbated by fall. Patients account of loss of bowel and urinary incontinence was initially concerning for cauda equina syndrome/spinal compression, however the symptoms are not new, and physical examination was unremarkable for any saddle anesthesia, babinski pathology, and rectal tone was appreciated. * Recieved oral medications and slept well overnight. * Currently on Oxycontine 30mg Q8, Oxycodone 20mg Q4-6hrs PRN by the time of discharge * Will continue gabapentin 800 mg every 6 hours * Will continue duloxetine 60 mg for neuropathic pain * we checked his CTPMP - it appears that patient is on pain medications like hydromorphine and Gabapentine, oxymorphine for a long time. * He is cleared medically for surgery, underwent preop work up today. * He started to walk from the return of [facility] by himself very well * Discharged on short acting pain medications asking him to stop taking dilaudid before surgery. * Also provided good bowel regimen. DVT prophylaxis * SC lovenox Code Status * Full Code Problem List: 1. Lumbar radiculopathy, chronic 2. Intractable back pain Pain Ratin Pain Location: back pain Pain Goal: Pain 4 or less Pain Plan: oxycontin and oxycodone Tomorrow's Labs & Rationales: none SAIGE LEVY MD 09/20/16 1459: Attending MD Review Statement Attending Statement Attending MD Statement: examined this patient, discuss w/resident/PA/COPY CENTER ASSOCIATE, agreed w/resident/PA/COPY CENTER ASSOCIATE, reviewed EMR data (avail), discussed with nursing, discussed with case mgmt, reviewed images, amended to note Attending Assessment/Plan: Patient seen and examined, pain seems to be slightly better controlled on current regimen. Neurosurgery had office to do some testing which includes checking coags, CBC and a BEP. They have also asked for preop testing. Patient does not have any history of coronary artery disease. His chest x-ray was clear. I do not have any recent echo and we have ordered an EKG which I do not see on the chart. Other than that I do not see any contraindication for the surgery. Patient will be continued on current pain regimen and he will have his back surgery done on September 24. Patient will be discharged.
[2016-09-20 07:34] VITALS: BP 140/70
--- NOTE | 2016-09-20 08:17 | PN- Neurosurgical ---
Subjective Subjective: Still with pain complaints, now on oral meds per medical service No new complaints, expresses frustration with care Objective Vital Signs and I&Os Vital Signs Date Time Temp Pulse Resp B/P Pulse O2 O2 Flow FiO2 Ox Delivery Rate 09/20 0634 97.8 68 20 140/70 93 09/19 2229 98.5 72 18 130/86 93 09/19 1508 97.5 80 20 134/60 94 Room Air Intake & Output 09/20 1600 09/20 0000 09/19 1600 09/19 0809/19 0000 Intake Total 120 400 600 240 340 Output Total 450 250 600 900 Balance -330 400 350 -360 -560 Intake, Oral 120 400 600 240 340 Output, Urine 450 250 600 900 Patient 99.79 kg Weight Physical Exam: AF, VSS lying in bed stable neuro exam of LE, markedly limited by effort and pain but with probable mod weakness L DF, otherwise at least 4= to 5-/5 elsewhere or better L-spine with well healed faint midline incision, diffuse TTP Current Medications: Current Medications Sig/Sarwat Start time Last Medication Dose Route Stop Time Status Admin Acetaminophen 650 MG Q6P PRN 09/15 2115 AC PO Diazepam 5 MG Q6-PRN PRN 09/16 0545 AC 09/19 PO 2154 Docusate Sodium 100 MG ONCE ONE 09/21 0715 AC PO 09/20 08 Duloxetine HCl 60 MG QPM 09/15 2200 AC 09/20 PO 0111 Enoxaparin Sodium 40 MG DAILY 09/16 1000 AC 09/19 SC 0930 Gabapentin 800 MG Q6 09/15 2359 AC 09/20 PO 0612 Hydromorphone HCl 2 MG Q2P PRN 09/17 0915 DC 09/19 IV 1410 Hydromorphone HCl 4 MG Q6-PRN PRN 09/15 2200 DC 09/19 PO 1814 Lactulose 20 GM ONCE ONE 09/21 0715 AC PO 09/20 0816 Magnesium Hydroxide 30 ML ONE ONE 09/21 0715 AC PO 09/20 0816 Magnesium Hydroxide 30 ML AT BEDTIME PRN 09/19 1500 AC PO Methylprednisolone 4 MG 2200 09/18 2200 AC 09/20 PO 09/20 2201 0111 Methylprednisolone 4 MG 0700 09/17 0700 AC 09/20 PO 09/21 0701 0613 Methylprednisolone 4 MG 1300 09/16 1300 DC 09/19 PO 09/19 1301 1402 Nicotine 14 MG DAILY 09/16 1000 AC 09/19 TOP 0930 Oxycodone HCl 20 MG Q4-6 PRN PRN 09/19 1445 AC 09/20 PO 0612 Oxycodone HCl 30 MG Q8 09/17 1400 AC 09/20 PO 0612 Patient Medication 1 ED .STK-MED ONE 09/19 1348 DC Teaching ED 09/19 1349 Polyethylene Glycol 17 GM DAILY 09/16 1000 AC 09/19 PO 0930 Ramelteon 8 MG ONCE ONE 09/19 2230 DC 09/19 PO 09/19 2231 2307 Senna/Docusate Sodium 2 TAB DAILY 09/16 1000 AC 09/19 PO 0930 Sodium Phosphate 1 UNIT ONCE ONE 09/20 0600 DC OR 09/20 0601 Assessment/Plan Assessment/Plan Pt admitted for pain control in setting of chronic LBP and radiculopathy and with focal left foraminal stenosis L5/S1 on imaging superimposed on DDD L4/5, L5 /S1 and scheduled for elective surgery this coming Saturday, 09/24. Please have pt undergo medical preop while in hospital as indicated in my initial c/s note and medically cleared for surgery on Saturday BEFORE HE IS DISCHARGED TO AVOID DELAY OR CANCELLATION OF THE SURGERY. Also, would: -dc steroids -mobilize pt to reduce risk of DVT, atectasis preop -aspen contour LSO brace by [employer] [facility] prior to dc -minimize opioids Thank you.
[2016-09-20] MEDS ORDERED: OXYCODONE HCL E20 MG PO (10:16)
[2016-09-20 10:56] LABS: ABSOLUTE BASOPHIL COUNT 0 /CUMM (0.0-0.2); ABSOLUTE EOSINOPHIL COUNT 0.1 /CUMM (0.0-0.7); ABSOLUTE GRANULOCYTE CT 5.9 /CUMM (1.4-6.5); ABSOLUTE LYMPH COUNT 1.3 /CUMM (1.2-3.4); ABSOLUTE MONOCYTE COUNT 0.5 /CUMM (0.10-0.60); BASOPHIL % 0.4 % (0.0-2.0); EOSINOPHIL % 1.4 % (0-5); GRANULOCYTE % 75.6 % (42.2-75.2); HEMATOCRIT 46.8 % (42-52); MEAN CORPUSCULAR HGB CONC 33.3 G/DL (33.0-37.0); MEAN CORPUSCULAR VOLUME 89.9 FL (80.0-94.0); MEAN PLATELET VOLUME 8.1 FL (7.4-10.4); PLATELET COUNT 194 /CUMM (130-400); RBC DISTRIBUTION WIDTH 13.7 % (11.5-14.5); RED BLOOD CELL CT 5.21 /CUMM (4.70-6.10); WHITE BLOOD CELL COUNT 7.9 /CUMM (4.8-10.8)
[2016-09-20 11:24] LABS: PTT 31 SEC (25-37)
[2016-09-20] MEDS ORDERED: SENNA S TABLET1 EACH PO (11:27)
[2016-09-20] MEDS ORDERED: MIRALAX119 GM PO (11:27)
--- NOTE | 2016-09-20 11:37 | NUR ---
NSG NOTE: PATIENT LEFT FLOOR VIA STRETCHER ACCOMPANIED BY DISTRIBUTION FOR XRAY; WILL CONT TO AWAIT FOR PATIENTS RETURN
--- NOTE | 2016-09-20 12:30 | NUR ---
NSG NOTE: THIS RN FOUND PATIENT AMBULATING UNATTENDED WITH CHART IN HAND ON WAY BACK FROM XRAY SUITE; DISTRIBUTION STATED "I WENT TO PICK HIM UP AND THERE WAS NOTHING BUT AN EMPTY STRETCHER"; DISTRIBUTION THEN FOUND PATIENT ON 2NB FLOOR WANDERING AND ESCORTED HIM TO ROOM APPROPRIATELY; PATIENT IS A HIGH FALL RISK; WILL CONT TO MONITOR
--- NOTE | 2016-09-20 12:44 | RADIOLOGY REPORT ---
EXAMINATION: XR CHEST CLINICAL INFORMATION: Preoperative assessment for cardiopulmonary process. COMPARISON: Chest x-ray dated 12/03/2009. CT scan of the chest dated 02/13/2014. TECHNIQUE: 2 views of the chest were obtained. FINDINGS: The cardiac mediastinal silhouette is borderline normal in size, unchanged and likely accentuated by the AP technique. Lungs bilaterally are symmetrically expanded. The small pulmonary nodules in the left lung seen on CT scan are not appreciated on plain film. No focal consolidation, effusion or pneumothorax is seen. Bony structures are unremarkable. IMPRESSION: Unchanged appearance of the chest with no acute cardiopulmonary process seen. Small pulmonary nodules seen in the left lung on CT scan are not appreciated on plain film and would be best followed by CT.
--- NOTE | 2016-09-20 20:44 | Discharge Summary ---
Visit Information Visit Dates Admission Date: 09/15/16 Discharge Date: 09/20/16 Hospital Course Course Attending Physician: SAIGE LEVY MD Primary Care Physician: MIRTHA GRAY MD Consulting Request: Consulting Specialty: Neurosurgery Consulting Physician: Reason for Consult: Lumbar spinal stenosis Hospital Course: Patient is a 51 YO M with a significant PMH of chronic low back pain, with chronic lumbar spondylosis and radiculopathy, previous history of falls, and previous history of back surgeries presents for evaluation after a fall. Patient is actively followed by neurosurgery and is scheduled for back procedure on september 24 2016. In the ED patient was given IV Solu-Medrol 125 mg, Valium, Dilaudid. Vitals on admission temperature 97.8, pulse 92, respiratory 20, blood pressure 152/100 on room ai Labs are unremarkable Imaging Lumbar spine CT 1. No acute findings within the lumbosacral spine compared to 04/03/2016. 2. At L5-S1, there is moderate disc degeneration, disc bulge and facet arthropathy with chronic, severe left-sided neural foraminal stenosis at this level. 3. Sigmoid colon diverticulosis without diverticulitis. head CT - unremarkable Hip Xray - unremarkable Shoulder Xray No acute findings at the right shoulder.Moderate osteoarthritis of the acromioclavicular joint. #Fall: Most likely secondary to radiculopathy as Patient does have a L4-L5 radiculopathy Patient also has peripheral neuropathy that can be contributing to increased risk of falls while ambulating. CT head is unremarkable for any bleed * PT eval - suggesting STR * Encouraged to walk around, did very well and discharged home #Acute on chronic low back pain: Patient chronic back pain secondary from lumbar radiculopathy and foraminal stenosis has been exacerbated by fall. Patients account of loss of bowel and urinary incontinence was initially concerning for cauda equina syndrome/spinal compression, however the symptoms are not new, and physical examination was unremarkable for any saddle anesthesia, babinski pathology, and rectal tone was appreciated. As there is no emergency for surgery - admitted for pain control. Started on Medrol dose pack as per suggestion. Intially on IV dialudid every 3hrs and oxycontine 20mg Q6, which was incresed in frequency as per patients request. He reports worsenig of his symptoms despite increasing dosage and requests to continue IV. So and (pain management) is consulted again. His home medications Gabapentine 800mg TID and Duloxeine 60mg are continued for nerve pain. visited the patient - informed that she cannot proceed with surgery if he is taking such a high dose of pain medications, asked him to stop taking IV meds and dilaudid as well. So patient agreed to be tapered to oral, next day he underwent Pre op work up in the hospital as per request as he didnt show up twice for out patient pre op evaluation. Apparently patient had opitae seeking behaviour as evident by able to tolerate well with oral medications. He was discharged with short acting oxycodone for few days before surgery along with oxymophone. He was asked not to take any dilaudid before surgery and need to be NPO from saturday (September 23 midnight). He had a low impact fall during the 3rd day of his hospitalization. No obvious injuries/head trauma evident. we checked his CTPMP - it appears that patient is on pain medications like hydromorphine and Gabapentine, oxymorphine for a long time. Complications: Low impact fall on september 18 in hospital, no significant injuries/head trauma. Allergies: Coded Allergies: NSAIDS (Non-Steroidal Anti-Inflamma (ANAPHYLAXIS - TONGUE SWELLS 01/02/16) Significant Procedures: Imaging Lumbar spine CT 1. No acute findings within the lumbosacral spine compared to 04/03/2016. 2. At L5-S1, there is moderate disc degeneration, disc bulge and facet arthropathy with chronic, severe left-sided neural foraminal stenosis at this level. 3. Sigmoid colon diverticulosis without diverticulitis. head CT - unremarkable Hip Xray - unremarkable Shoulder Xray No acute findings at the right shoulder.Moderate osteoarthritis of the acromioclavicular joint. Pertinent Lab Results: unremarkable labs Disposition Summary Disposition Principal Diagnosis: Acute on chronic back pain Additional Diagnosis: fall Discharge Disposition: home or self care Discharge Instructions General Discharge Information Code Status: Full Code Patient's Diet: Normal diet Patient's Activity: activity as tolerated Follow-Up Instructions/Appts: Please follow up with on saturday Please remain NPO after saturday Midnight Please follow up with for pain management Medications at Discharge Discharge Medications: Stop taking the following medications: Hydromorphone HCl (Hydromorphone HCl) 4 MG TABLET ORAL 5 TIMES A DAY Qty = 75 Continue taking these medications: Duloxetine HCl (Duloxetine HCl) 60 MG CAPSULE.DR 1 Capsule ORAL DAILY Qty = 30 Comments: Last Taken: 09/20/16 Time: 01:11 Gabapentin (Neurontin) 800 MG TABLET 1 Tablet ORAL Q6H Qty = 120 Comments: Last Taken: 09/20/16 Time: 0600 AM Oxymorphone HCl (Opana ER) 20 MG TAB.ER.12H 1 Tablet ORAL TWICE DAILY Qty = 30 Comments: Last Taken: Time: NOT GIVEN ON THIS ADMISSION Start taking the following new medications: Oxycodone HCl (Oxycodone HCl ER) 20 MG TAB.ER.12H 1 Tablet ORAL EVERY FOUR HOURS as needed for SEVERE PAIN Qty = 24 No Refills Comments: Last Taken: 09/20/16 Time: 06:00 AM (GIVEN 30 MG) Copies To: BUD MARLOW,JOSE RAUL Jacobson; ISAAC MARLOW,MIRTHA Del Castillo; JARROD MARLOW,RADHA Anand Attending MD Review Statement Documenting Attending: MILDRED MARLOW,SAIGE
== END 2016-09-20 13:10 | DRG 552 ==
LOC: ENRESERVTM → ENRESERVDT → ERH 15:50 → ENPENDDIS 21:02 → ERHI 21:02 → 2NB 21:02
PROVIDERS: Internal Medicine; Physician Assistant; Student in an Organized Health Care Education/Training Program; ADMIT Student in an Organized Health Care Education/Training Program
DX: M51.16 Intervertebral disc disorders with radiculopathy, lumbar region (principal); G62.9 Polyneuropathy, unspecified; I10 Essential (primary) hypertension; F32.9 Major depressive disorder, single episode, unspecified; M21.372 Foot drop, left foot; Z87.891 Personal history of nicotine dependence
CPT/HCPCS: 2NBSP; 36415; 73030-RT; 73502-RT; 80307; 81003; 82436; 87070; 93005; 93010; 94799; 96372; 96374; 96375; 96376; 97116-GO; 97162-GP; 97530-GO; G0480; J0131; J1650; J2930; J3360

== ENCOUNTER 2016-09-24 02:38 | Inpatient (IN) | payer OTHER ==
[~2016-09-24] VITALS: Ht 177.8 cm; Wt 101.6 kg
[~2016-09-24 02:38] MED LIST changes: +MIRALAX119 GM PO; +OXYCODONE HCL E20 MG PO; +SENNA S TABLET1 EACH PO
--- NOTE | 2016-09-24 08:47 | RADIOLOGY REPORT ---
EXAMINATION: XR LUMBAR SPINE CLINICAL INFORMATION: L4-L5, L5-S1 TLIF. COMPARISON: CT lumbar spine dated 09/15/2016. Radiograph lumbar spine dated 02/15/2016. TECHNIQUE: A single lateral radiograph of the lumbar spine was performed. FINDINGS: The numbering scheme used for this examination is the same as that used on the above CT and lumbar spine radiographs. There is a single radiopaque marker projecting over the paraspinal soft tissue posterior to the L5 vertebral body. L5 limbus vertebrae is redemonstrated. There is mild narrowing of the L5-S1 intervertebral disc space as well as the L4-L5 intervertebral disc space. There is minimal retrolisthesis of L4 in relation to L5. IMPRESSION: There is a single radiopaque marker projecting over the paraspinal soft tissue posterior to the L5 vertebral body. There is mild narrowing of the L5-S1 intervertebral disc space as well as the L4-L5 intervertebral disc space. There is minimal retrolisthesis of L4 in relation to L5.
--- NOTE | 2016-09-24 09:26 | RADIOLOGY REPORT ---
EXAMINATION: XR LUMBAR SPINE CLINICAL INFORMATION: L4-L5 and L5-S1 TLIF COMPARISON: None TECHNIQUE: Cross table intraoperative lateral radiograph of lumbar spine was obtained. FINDINGS: This is the second intraoperative radiograph of the series. There are soft tissue retractors dorsal to the lower lumbar spine and surgical instruments are directed to the posterior elements at the L5-S1 level. There is degenerative disc space narrowing with traction osteophyte formation at L4-L5 and L5-S1. IMPRESSION: Intraoperative radiograph acquired during lower lumbar transforaminal lumbar interbody fusion surgery.
--- NOTE | 2016-09-24 12:25 | RADIOLOGY REPORT ---
EXAMINATION: XR LUMBOSACRAL SPINE CLINICAL INFORMATION: Intraoperative CT imaging of the lumbar spine. COMPARISON: Lumbar spine CT scan 09/15/2016. TECHNIQUE: AP and lateral views of the lumbosacral spine were obtained. FINDINGS: [address] acquisitions of the lumbar spine were obtained during posterior lumbar interbody fusions at L3-L4 and L4-L5. Of note there is transitional anatomy with sacralization of the L5 segment. Interbody fusion hardware has been placed and is in expected position. Morselized bone graft material has been deposited along the posterior elements of L3, L4, and L5. The subsequent acquisition demonstrates the placement of transpedicular screws extending from L3 to L5. The screws are well-positioned with no evidence of canal or neuroforaminal encroachment. Screws are intact. Limited visualization of the retroperitoneal structures reveals no abnormal finding. Psoas and paraspinal muscle groups are symmetric. IMPRESSION: [address] images of the lower lumbar spine demonstrate stages of posterior lumbar interbody fusion at L3-L4 and L4-L5. The transpedicular screws at L3, L4, and L5 are in good position with no evidence of canal or neuroforaminal encroachment.
--- NOTE | 2016-09-24 12:39 | Operative Report ---
Operative/Inv Procedure Report Surgery Date: 09/24/16 Name of Procedure: Lumbar 45, L5-S1 laminectomies, bilateral osteotomies, L4 5 TLIF, L5-S1 TLIF. Insertion of 11 x 28 mm tritanium interbody cage at L45. Insertion of 9 x 28 mm L5-S1 interbody cage. L4 5 S1 posterior lateral arthrodesis utilizing autologous bone graft. L4 5 posterior lateral segmental instrumentation utilizing teresa titanium stereotactically. Please note patient has partially lumbarized S1 segment. Pre-Operative Diagnosis: L4 5 L5-S1 degenerated herniated disks. Post-Operative Diagnosis: Same Estimated Blood Loss: 500cc Surgeon/Sewing Department Supervisor: SUSAN JOSEPH MD AND JOSE RAUL FARRELL MD Anesthesia: general endotracheal tube Operative/Procedure Note Note: After undergoing endotracheal intubation Atkinson catheterization Venodyne's were placed over both lower extremities, the patient was placed flat on a Shan frame prone all bony prominences well-padded. The back was washed with alcohol and Betadine reprepped with DuraPrep solution draped in usual sterile fashion. X-ray was used for localization. The prior incision was now opened along the previous incision site and developed superiorly and inferiorly exposing the spine from L4 through S1 achieving noted that the S1 segment is partially lumbarized. The paraspinal muscles were mobilized out laterally to the level of the transverse processes exposing the L4 L5 S1 spinous processes. The x-rays used for localization. Working with a MISONIX bone scalpel. The lamina were now completely removed from L4 downwards to S1 and bilateral osteotomies were now performed together with complete foraminotomies and complete facetectomies bilaterally. The bone was harvested morcellized and later used in the arthrodesis. The space was now entered into the right at the L5-S1 and cleared with a common associated and curved rongeurs and straight and curved curettes. The cartilaginous end plates were removed and the bony end plates were partially decorticated. Morselized bone was packed into the interspace. A cage was now taken to the right height 9 x 28 mm , and tapped across the midline into interspace at the L5-S1. The L4 5 disc space was entered and cleared away with, restriction of straight and curved rongeurs and straight and curved curettes. The cartilaginous endplates were now removed and the bony endplates were now partially decorticated. The cagewas centrally filled with autologous bone graft A 11 x 20 mm cage and tapped across the midline and countersunk. Copious amounts of bacitracin irrigation were now used. Bone was now placed over the decorticated surfaces posterolaterally between L4 and S1 and packed into the posterolateral spine. After obtaining the stereotactic coordinates teresa titanium screws were now placed at L4-L5 and S1 through the pedicles 6.5 mm diameter screws by 45 in length at L4 and L5 and 40 in length at S1. This was now stimulated and found to stimulate well above 30 mA. The prescription pedicle screws were now connected to the 2 rods and secured under compression this amounts of irrigation were now used vancomycin powder was placed into the wound the large a medium drain was then removed with a 2 separate skin incision secured to the skin the paraspinal muscles and fascia were reapproximated utilizing interrupted 0 Vicryls inverted 2-0 Vicryl subcutaneous teeniest tissues and susan for the skin.
--- NOTE | 2016-09-24 12:52 | Operative Report ---
Operative/Inv Procedure Report Surgery Date: 09/24/16 Name of Procedure: 1. L4, L5 bilat pars osteotomies 2. L4/5, L5/S1 total facetectomies, foraminotomies 3. Far lateral L4 5 and L5-S1 discectomies 4. L4 5, L5-S1 transforaminal lumbar interbody fusion with titanium interbody cages, autograft 5. Segmental L4-S1 posterior lateral arthrodesis with pedicle screws and rods, autograft, iliac crest bone marrow aspirate, [place] Dilma 3 6. O arm neuro navigation 7. Right Iliac crest bone marrow aspirate Pre-Operative Diagnosis: 1. L4 5, L5-S1 degenerative disc disease, stenosis, spondylolisthesis 2. Postoperative left L5-S1 epidural fibrosis Post-Operative Diagnosis: Same Estimated Blood Loss: 600cc Surgeon/Hat Presser: BUD MARLOW,JOSE RAUL Fine,MD Itz Anesthesia: general endotracheal tube Monitors: Neurophysiologic monitoring IV Fluids: 2.2L crystalloid, 315 mL Cell Saver Implants: [place] titanium cages, Dilma 3 pedicle screws and rods Urine Output: 205 mL via Atkinson Drains: Medium ISSAC Specimens: L4 5, L5-S1 disc material Complications: None Condition: Stable Operative Indication: Patient is a 51-year-old gentleman with intractable back and leg pain with a progressive left foot drop. His imaging shows advanced degenerative disc disease at L4 5, L5-S1 with retrolisthesis, and severe left L5-S1 foraminal stenosis. At L4 5 he has lateral recess stenosis bilaterally secondary to overgrowth of the facets and broad posterior disc protrusion. He has failed a comprehensive course of nonoperative treatment and now presents for surgical decompression and instrumented fusion. Patient is noted to have a transitional lumbosacral junction with the last 2 disc space noted to be L5-S1. Operative/Procedure Note Note: Patient taken to the operating room. After appropriate patient identification and surgical timeout, the patient underwent the smooth induction of general endotracheal anesthesia without incident. Neurophysiologic monitoring leads were placed and baseline recordings were obtained. A Atkinson catheter was sterilely inserted. DVT prophylaxis utilized throughout the case. Patient was given 2 g of IV Preoperative Prophylaxis. Lines Secured, the Patient Was Carefully Turned to the Prone Position on the Shan Table Taking Care to Ensure That All Pressure Points Were Well-Padded. Lumbar Region Was Widely Prepped and Draped with Probe Iodine Solution. A Vertical Midline Skin Incision Was Marked Overlying His Previous Incision and Extended Rostrally. Fluoroscopy we was used to localize the correct level. Skin incision was made with a 10 blade knife. Dissection was carried down through subcutaneous tissue with the Bovie. This fascia was incised in midline and a sub-periosteal dissection lumbar paravertebral muscles was performed bilaterally exposing the spinous processes and lamina as well as the facet complexes of L4 5 and L5-S1 bilaterally. Previous scarring in the interlaminar space on the left L5-S1 was consistent with his history of prior surgery. A laminotomy of the left L5 lamina was identified. The levels were again confirmed with the intraoperative fluoroscopy. We then exposed the transverse processes of L4-L5 and the sacral alar bilaterally which were decorticated with a high-speed drill. Using the bone scalpel, complete laminectomies and facetectomies of L4 5 and L5- S1 were performed bilaterally skeletonizing the pedicles of L4, L5, and the sacrum bilaterally. All bone was saved and passed off to the back table. The traversing and exiting roots at each level were thoroughly decompressed. The midline thecal sac was widely decompressed and all the hypertrophic ligamentum flavum was removed with Kerrison rongeurs. We then focused our attention to the interbody arthrodesis starting at L5-S1. Using a Jamshidi needle, approximately 15 mL of iliac crest bone marrow aspirate was harvested from the right posterior iliac crest and added for autograft. Working from the right side, thecal sac was gently mobilized the midline and the disc annulus identified. Overlying venous epidural tissue was coagulated and divided. An annulotomy was made and a discectomy performed with straight and angled curettes disc space francis and rasps until all the cartilaginous endplate was removed. Was noted to be extremely collapsed and had a be sequentially dilated up to a final height of 10 mm. A 10 x 28 x 6 tubular lordotic Gilles titanium cage was selected and filled with morcellated autograft. Autograft was also packed into the anterior disc space. The cage was gently tamped into the interspace until it was countersunk by approximately 2-3 mm and visual inspection showed it to be in excellent position. It was in position at L5-S1, we performed an analogous interbody arthrodesis at L4 5 working from the patient's left side. A discectomy was completed with all the cartilaginous endplates removed and prepared for arthrodesis. A second 11 x 28 x 6 lordotic Gilles titanium cage was selected for L4 5. Morcellated autograft was packed into the disc space and into the cage and the cage was gently tamped into the interbody space under direct observation and countersunk. With the cages in position, we then proceeded with the posterior lateral arthrodesis. The O arm reference arc was placed into the right posterior iliac crest. The O arm was brought into play. AP and lateral reference x-rays followed by spin of the arm was obtained. Sagittal coronal reconstructions were then obtained and confirmed. Using the O arm guidance, We then placed pedicle screws at L4, L5, S1 in a standard fashion. The gliding pilot instructor holes were made at the junction of the pars interarticularis, transverse process and facet. The holes were traversed with a gearshift, sounded with a ball-tipped probe, tapped, sounded again, and screws placed. At L4, and L5, 6.5 x 45 mm screws were placed bilaterally and at S1, 6.5 x 40 mm screws were placed without application. All screws stimulated with thresholds greater than 35 mA. Both cages were gently tamped approximate 1-2 mm further into the disc space based on the O arm reconstructions. Once all screws were in position, we obtained a second spin of the O arm which confirmed excellent position of all the screws and interbody cages. The decompression also looked excellent. A 60 mm rods were then top loaded into the screws and locking caps placed. Morcellated autograft was packed in the intertransverse space between L4-L5 and the sacral alar bilaterally. The screws were finally tightened with an antitorque device wound was copiously irrigated with bacitracin sterile saline irrigation. 1 g of IV the ankle mycin powder was placed into the wound. A medium ISSAC drain was placed into the wound and secured to the skin with a 2-0 nylon suture. A long-acting local anesthetic was infiltrated into the paravertebral muscle. Wound closure was then begun. Deep muscle was reapproximated with interrupted 0 Vicryl suture. Lumbodorsal fascia was reapproximated with interrupted 0 Vicryl suture. The subcutaneous tissue was irrigated and closed in layers with interrupted 20 and 3-0 Vicryl suture and the skin was closed with susan. A was cleaned and dried. Bacitracin and a sterile occlusive dressing was placed. The smaller bright stab incision at the right posterior hip was closed with interrupted 2-0 Vicryl suture in the dermis and a and susan in the skin. The wounds were cleaned and dried. Bacitracin and a sterile occlusive dressings were placed. Patient was then returned to the supine position awakened X pain taken to PACU in stable condition. He was noted to be moving all 4 extremities at the completion of the case. All sponge, needle, and injuring counts are correct at the completion of procedure 3. Neurophysiologic monitoring remained stable throughout the case.
--- NOTE | 2016-09-24 15:04 | Patient Discharge Instructions ---
Discharge Instructions General Discharge Information You were seen/treated for: Low back pain secondary to spondylolisthesis You had these procedures: L4 5 L5-S1 transforaminal lumbar interbody vertebral fusion Watch for these problems: Increasing pain, redness, warmth, swelling to incision. Drainage of any type from incision. Inability to urinate or moved her bowels. Inability to bear weight on your bilateral lower extremities. Increasing loss of sensation to bilateral lower extremities. Fever greater than 101.5. Do not soak the wound: Yes No bath, but you may shower: Yes Other wound care: Deep wound clean and dry Special Instructions: Weight-bear brace at all times while awake, no bending or twisting Diet Continue normal diet: Yes Recommended Diet: Regular Activity Full Activity/No Limits: No Activity Self Limited: Yes Pounds, do NOT lift more than: 5 Activity Limited to: Weight bear as tolerated Additional ACTIVITY Info: No bending or twisting. Please wear back brace at all times while awake and ambulating. Acute Coronary Syndrome Inclusion Criteria At DC or during hospital stay patient has or had the following: ACS DIAGNOSIS No Discharge Core Measures Meds if any: Prescribed or Continued at Discharge Meds if any: NOT Prescribed or Continued at Discharge Congestive Heart Failure Inclusion Criteria At DC or during hospital stay patient has or had the following: CHF DIAGNOSIS No Discharge Core Measures Meds if any: Prescribed or Continued at Discharge Meds if any: NOT Prescribed or Continued at Discharge Cerebrovascular accident Inclusion Criteria At DC or during hospital stay patient has or had the following: CVA/TIA Diagnosis No Discharge Core Measures Meds if any: Prescribed or Continued at Discharge Meds if any: NOT Prescribed or Continued at Discharge Venous thromboembolism Inclusion Criteria VTE Diagnosis No VTE Type NONE VTE Confirmed by (Test) NONE Discharge Core Measures - Per Current guidelines, there needs to be overlap - treatment for the first 5 days of Warfarin therapy. - If discharged on Warfarin prior to 5 days of - overlap therapy, the patient will need to be - assessed for post discharge needs including - *Post discharge parental anticoagulation - *Warfarin and/or parental anticoagulation education - *Follow up date to check INR post discharge At least 5 days overlap therapy as Inpatient No Meds if any: Prescribed or Continued at Discharge Note: Overlap Therapy is Warfarin and Anticoagulant Meds if any: NOT Prescribed or Continued at Discharge
--- NOTE | 2016-09-24 15:07 | Surgical Discharge Summary ---
Visit Information Visit Dates Admission Date: 09/24/16 Discharge Date: 09/27/16 History of Present Illness Chief Complaint: Low back pain secondary to spondylolisthesis Medical History Neurological: migraine EENT: NONE Cardiovascular: hypertension Respiratory: NONE, SMOKER Gastrointestinal: ICONTINENCE AT TIMES Hepatic: NONE Renal: NONE Musculoskeletal: chronic back pain Psychiatric: anxiety, depression Endocrine: NONE Blood Disorders: NONE Cancer(s): NONE SQL ETL DEVELOPER/Reproductive: NONE History of MRSA: No History of VRE: No History of CDIFF: No Isolation History: Standard Tetanus Vaccine: 08/25/16 Surgical History Pertinent Surgical History: non-contributory Family History Relations & Conditions If Any: Relation not specified for: *No pertinent family history Psychosocial History Who Do You Live With? Patient/Self Services at Home: None What is Your Primary Language? Arabic Review of Systems: neg Hospital Course Course Attending Physician: JOSE RAUL FARRELL MD Primary Care Physician: ISAAC MARLOW,MIRTHA Del Castillo Hospital Course: Patient was admitted to the hospital on 09/24/2012 for an elective transforaminal interbody vertebral fusion in levels L4 through S1. He tolerated the procedure well. He was transferred to a general surgical floor. His diet was advanced and tolerated. His vital signs were stable and within normal limits. He voided spontaneously. His pain was well controlled with oral pain medications. He was evaluated and treated by physical therapy. He was deemed appropriate for discharge. Allergies: Coded Allergies: NSAIDS (Non-Steroidal Anti-Inflamma (ANAPHYLAXIS - TONGUE SWELLS 01/02/16) Disposition Summary Disposition Principal Diagnosis: L4 to L5, L5 to S1 spondylolisthesis Additional Diagnosis: None Discharge Disposition: home or self care Discharge Instructions General Discharge Information Code Status: Full Code Patient's Diet: Regular, advance as tolerated Patient's Activity: Weight-bear as tolerated, wear brace at all times while awake and ambulating. Follow-Up Instructions/Appts: Please contact Dr. Dolly Cee office to arrange and/or confirm follow-up appointment. She would like for you to be seen in her office in 2 weeks from date of surgery. Medications at Discharge Discharge Medications: Stop taking the following medications: Oxycodone HCl (Oxycodone HCl ER) 20 MG TAB.ER.12H ORAL EVERY FOUR HOURS as needed for SEVERE PAIN Qty = 24 Continue taking these medications: Duloxetine HCl (Duloxetine HCl) 60 MG CAPSULE.DR 1 Capsule ORAL DAILY Qty = 30 Comments: Last Taken: 09/26/16 Time: 10AM Gabapentin (Neurontin) 800 MG TABLET 1 Tablet ORAL Q6H Qty = 120 Comments: Last Taken: 09/27/16 Time: 1PM Oxymorphone HCl (Opana ER) 20 MG TAB.ER.12H 1 Tablet ORAL TWICE DAILY Qty = 30 Comments: Last Taken: Time: NOT GIVEN ON THIS ADMISSION Start taking the following new medications: Hydromorphone HCl (Dilaudid) 4 MG TABLET 1 Tablet ORAL EVERY 4 HOURS NEEDED as needed for PAIN Qty = 20 No Refills Comments: Last Taken:09/27/16 Time:11AM
--- NOTE | 2016-09-24 16:08 | PN- Neurology ---
JAC HALL 09/24/16 1553: Subjective Subjective: Patient reports no Nausea, vomiting and states he his pain is minimally controlled with CASINO ATTENDANT. His pain is located at the postoperative site and in the hips. He denies any numbness tingling or any other complaints. Objective Vital Signs and I&Os Vital signs; Temp: 98.2, blood pressure;138/82,Resp rate : 14 , Pulse 74,oxygen sat :94 2L nasal cannula. santa: 350 cc , Fluids : NS 75cc/hr, PAIN :CASINO ATTENDANT dilaudid , Valium for muscle spasm. sophia drain x1 : min 10cc sanguineous fluid. Physical Exam: Appears in no distress resting comfortably in bed. Lung sounds were clear to auscultation bilaterally no additional sounds appreciated. Heart rate regular rate and rhythm, S1 and S2 appreciated bases and apices. No murmurs were appreciated. Bilateral lower extremity and upper extremity motor sensory is intact. Postoperative incision site is clean dry and intact dressing. ( patient has a chronic left lower leg foot drop] Current Medications: Current Medications Sig/Sarwat Start time Last Medication Dose Route Stop Time Status Admin Acetaminophen 650 MG Q4P PRN 09/24 1249 AC PO Acetaminophen 1,000 MG .STK-MED ONE 09/24 0703 DC IV 09/24 0704 Bisacodyl 10 MG DAILY NEEDED PRN 09/24 1249 AC NM Cefazolin Sodium 2,000 MG Q8H 09/24 1600 DC IV 09/26 0801 Cefazolin Sodium 2,000 MG Q8H 09/24 1600 AC IV 09/25 0001 Cefazolin Sodium 2,000 MG ONCE 09/24 0000 NR IV 09/24 2359 Diazepam 5 MG Q8P PRN 09/24 1249 AC PO Docusate Sodium 100 MG TID 09/24 1600 AC PO Duloxetine HCl 60 MG DAILY 09/24 1330 AC PO Fentanyl Citrate 250 MCG .STK-MED ONE 09/24 07 DC IM 09/24 0703 Gabapentin 800 MG Q6 09/24 1800 AC PO Hydromorphone HCl 50 MG Q24H PRN 09/24 1300 AC Sodium Chloride 45 ML IV Hydromorphone HCl 2 MG .STK-MED ONE 09/24 07 DC IM 09/24 0703 Ketamine HCl 50 MG .STK-MED ONE 09/24 0723 DC IM 09/24 0724 Midazolam HCl 2 MG .STK-MED ONE 09/24 0703 DC IM 09/24 0704 Ondansetron HCl 4 MG Q6P PRN 09/24 1249 AC IV Patient Medication 1 UNIT ONE NR 09/24 1300 AC Teaching ED 09/24 1900 Remifentanil 4 MG .STK-MED ONE 09/24 0706 DC IV 09/24 0707 Remifentanil 1 MG .STK-MED ONE 09/24 0704 DC IV 09/24 0705 Senna 374 MG 2200 PRN 09/26 2200 AC PO Sodium Chloride 1,000 ML Q10H 09/24 1248 AC IV 09/25 0847 Trimethobenzamide HCl 200 MG Q6P PRN 09/24 1249 AC IM Assessment/Plan Assessment: -51 year-old male status post TLIF lumbar L4-S1 postoperatively doing well except for his post op pain control Plan: 1. Continue the current pain regimen as patient has not received the pain medication by mouth such as muscle relaxants and Tylenol will continue to monitor for now and will not make any further change in the pain regimen for now. 2. DC Santa at the midnight. 3. Hep-Lock IV fluids when po intake is adequate. 4. Needs IS/PTeval in am , 5. On mechanical prophylaxsis for dvt. MILTON BANKS 09/24/16 1613: Assessment/Plan Plan: I DID NOT SEE THIS PATIENT
[2016-09-24 17:30] VITALS: BP 122/70
[2016-09-24 19:30] VITALS: BP 120/56
[2016-09-24 20:30] VITALS: BP 120/56
--- NOTE | 2016-09-24 21:30 | PN- Neurosurgical ---
Subjective Subjective: Pt doing well. Reports pain not well relieved with CD MIXER and requesting to go back on pain regimen of last admission including oxycontin and diulaudid for breakthrough. Nurse reports that wound drain broke and disconneced as pt was leno alvarez. Objective Vital Signs and I&Os Vital Signs Date Time Temp Pulse Resp B/P Pulse O2 O2 Flow FiO2 Ox Delivery Rate 09/24 1930 98.1 80 20 120/56 91 Room Air 09/24 1730 97.2 73 16 122/70 09/24 1730 97.2 73 18 122/70 94 Room Air Physical Exam: Pt is awake and alert, conversant and appropriate incision is c,d,i ISSAC is broken midtubing and disconnected from bulb- 105cc since PACU serosanguinous motor LE improved c/w preop with persistent left EHL weakness but better DF strength, sensory intact, RLE full power Pt already ambulatory Current Medications: Current Medications Sig/Sarwat Start time Last Medication Dose Route Stop Time Status Admin Acetaminophen 650 MG Q4P PRN 09/24 1249 AC PO Acetaminophen 1,000 MG .STK-MED ONE 09/24 0703 DC IV 09/24 0704 Bisacodyl 10 MG DAILY NEEDED PRN 09/24 1249 AC TN Cefazolin Sodium 2 GM Q8H 09/24 1915 CAN N/A 1 UNIT IV 09/25 0344 Cefazolin Sodium 2,000 MG Q8H 09/24 1600 DC IV 09/26 0801 Cefazolin Sodium 2,000 MG Q8H 09/24 1600 AC 09/24 IV 09/25 0001 2011 Cefazolin Sodium 2,000 MG ONCE 09/24 0000 NR IV 09/24 2359 Diazepam 5 MG Q8 09/24 2200 AC PO Diazepam 5 MG Q8P PRN 09/24 1249 DC 09/24 PO 1712 Docusate Sodium 100 MG TID 09/24 1600 AC 09/24 PO 2012 Duloxetine HCl 60 MG DAILY 09/24 1330 AC 09/24 PO 2012 Fentanyl Citrate 250 MCG .STK-MED ONE 09/24 0702 DC IM 09/24 0703 Gabapentin 800 MG Q6 09/24 1800 AC 09/24 PO 2010 Hydromorphone HCl 2 MG Q3P PRN 09/24 2115 AC PO Hydromorphone HCl 50 MG Q24H PRN 09/24 1300 DC Sodium Chloride 45 ML IV Hydromorphone HCl 2 MG .STK-MED ONE 09/24 1251 DC IM 09/24 1252 Hydromorphone HCl 2 MG .STK-MED ONE 09/24 0959 DC IM 09/24 1000 Hydromorphone HCl 2 MG .STK-MED ONE 09/24 0702 DC IM 09/24 0703 Ketamine HCl 50 MG .STK-MED ONE 09/24 0723 DC IM 09/24 0724 Midazolam HCl 2 MG .STK-MED ONE 09/24 0703 DC IM 09/24 0704 Ondansetron HCl 4 MG Q6P PRN 09/24 1249 AC IV Oxycodone HCl 30 MG Q12 09/24 2115 AC PO Patient Medication 1 UNIT ONE NR 09/24 1300 DC Teaching ED 09/24 1900 Remifentanil 4 MG .STK-MED ONE 09/24 0706 DC IV 09/24 0707 Remifentanil 1 MG .STK-MED ONE 09/24 0704 DC IV 09/24 0705 Senna 374 MG 2200 PRN 09/26 2200 AC PO Sodium Chloride 1,000 ML Q10H 09/24 1248 AC 09/24 IV 09/25 0847 2014 Trimethobenzamide HCl 200 MG Q6P PRN 09/24 1249 AC IM Assessment/Plan Assessment/Plan Pt POD0 s/p L4/5, L5/S1 decompression and fusion. Neurologically intact. Pain control an issue. Plan: -drain reattached and secured, cont until less than 50cc per shift -dc CD MIXER and start oxycontin 30bid with dilaudid 2mg po q3hr prn breakthrough, valium 5q8 as scheduled dose -OOB with brace -dc santa at pt request -ISC prn -IS at bedside, pt instructed, use 10x per hr -ADAT -DVT prophylaxis -cont abx until drain dc'd Core Measures/Miscellaneous Venous Thromboembolism VTE Risk Factors: Age > 40, Surgery VTE Contraindications: No Contraindications VTE Diagnosis: No Beta Manny Is Beta Manny a Home Med? No Antibiotics Is Patient on Antibiotics? Yes Attending MD Review Statement Attending Statement Attending MD Statement: examined this patient, discuss w/resident/PA/VIDEO CAMERA OPERATOR, discussed w/nursing
[2016-09-24 22:19] VITALS: BP 110/70
[2016-09-24 23:55] VITALS: BP 110/68
[2016-09-25 04:20] VITALS: BP 120/70
--- NOTE | 2016-09-25 09:45 | PN- Neurosurgical ---
Subjective Subjective: NAEO. Patient continues to have pain despite taking PO dilaudid and valium. Does have occasional pain down his legs but no new numbness or tingling. States he did not sleep well. Tolerating diet without n/v. Has not been OOB this a.m. Denies CP/SOB. Objective Vital Signs and I&Os Vital Signs Date Time Temp Pulse Resp B/P Pulse O2 O2 Flow FiO2 Ox Delivery Rate 09/25 0420 99.6 82 16 120/70 92 Room Air 09/24 2355 98.0 80 18 110/68 92 Room Air 09/24 2248 Room Air 09/24 2219 98.1 82 20 110/70 91 Room Air 09/24 2030 98.1 80 20 120/56 09/24 1930 98.1 80 20 120/56 91 Room Air 09/24 1730 97.2 73 16 122/70 09/24 1730 97.2 73 18 122/70 94 Room Air Intake & Output 09/25 1600 09/25 0800 09/25 0000 09/24 1600 09/24 0800 09/24 0000 Intake Total 1460 790 Output Total 490 505 Balance 970 285 Intake, IV 800 450 Intake, Oral 660 340 Output, 140 105 Drainage Output, Urine 350 400 Patient 225 lb Weight Physical Exam: General: NAD, comfortable, A&Ox3 Chest: CTAB, no wheezes, no rales. Heart S1S2 normal. Abdomen: soft, nontender, nondistended. Back: Dressing with 2 small spots of strikethrough otherwise clean dry and intact. Drain in place with sanguinous drainage. Ext: No calve swelling/TTP, neurovascularly intact bilateral lower extremities Current Medications: Current Medications Sig/Sarwat Start time Last Medication Dose Route Stop Time Status Admin Acetaminophen 650 MG Q4P PRN 09/24 1249 AC PO Bisacodyl 10 MG DAILY NEEDED PRN 09/24 1249 AC RI Cefazolin Sodium 2 GM Q8H 09/24 1915 CAN N/A 1 UNIT IV 09/25 0344 Cefazolin Sodium 2,000 MG Q8H 09/24 1600 DC IV 09/26 0801 Cefazolin Sodium 2,000 MG Q8H 09/24 1600 DC 09/25 IV 09/25 0001 0252 Cefazolin Sodium 2,000 MG ONCE 09/24 0000 DC IV 09/24 2359 Diazepam 5 MG Q8 09/24 2200 AC 09/25 PO 0449 Diazepam 5 MG Q8P PRN 09/24 1249 DC 09/24 PO 1712 Docusate Sodium 100 MG TID 09/24 1600 AC 09/24 PO 2012 Duloxetine HCl 60 MG DAILY 09/24 1330 AC 09/24 PO 2013 Gabapentin 800 MG Q6 09/24 1800 AC 09/25 PO 0449 Hydromorphone HCl 1 MG Q3P PRN 09/25 0930 UNVr IV Hydromorphone HCl 4 MG Q3P PRN 09/25 0530 AC 09/25 PO 0842 Hydromorphone HCl 2 MG Q3P PRN 09/24 2115 AC 09/25 PO 0302 Hydromorphone HCl 2 MG .STK-MED ONE 09/24 1340 DC IM 09/24 1341 Hydromorphone HCl 50 MG Q24H PRN 09/24 1300 DC Sodium Chloride 45 ML IV Hydromorphone HCl 2 MG .STK-MED ONE 09/24 1251 DC IM 09/24 1252 Hydromorphone HCl 2 MG .STK-MED ONE 09/24 0959 DC IM 09/24 1000 Ondansetron HCl 4 MG Q6P PRN 09/24 1249 AC IV Oxycodone HCl 30 MG Q12 09/24 2115 09/24 PO 2124 Patient Medication 1 UNIT ONE NR 09/24 1300 DC Teaching ED 09/24 1900 Senna 374 MG 2200 PRN 09/26 2200 AC PO Sodium Chloride 1,000 ML Q10H 09/24 1248 DC 09/25 IV 09/25 0847 0530 Trimethobenzamide HCl 200 MG Q6P PRN 09/24 1249 AC IM Assessment/Plan Assessment/Plan 51yo M postop day #1 status post TLIF L4 through S1. AVSS. - Increase by mouth Dilaudid and add 1 mg IV Dilaudid every 3 P for breakthrough - When necessary Zofran - Continue Valium - Continue ISSAC drain to bulb suction - Ancef while ISSAC drain in place - I/O's - Alps - Continue diet - Will discuss with attending Core Measures/Miscellaneous Venous Thromboembolism VTE Risk Factors: Age > 40, Surgery VTE Contraindications: No Contraindications VTE Diagnosis: No Beta Manny Is Beta Manny a Home Med? No Antibiotics Is Patient on Antibiotics? Yes
[2016-09-25 14:27] VITALS: BP 120/70
[2016-09-26 00:09] VITALS: BP 114/60
[2016-09-26 07:20] VITALS: BP 116/64
--- NOTE | 2016-09-26 07:35 | PN- Neurosurgical ---
Subjective Subjective: Patient continues to complain of pain and is asking that pain medications continue to be increased. Denies chest pain, shortness of breath and difficulty breathing. Denies nausea and vomitting. Is voiding spontaneously without difficulty. Has not been oob yet this am. Objective Vital Signs and I&Os Vital Signs Date Time Temp Pulse Resp B/P Pulse O2 O2 Flow FiO2 Ox Delivery Rate 09/26 0720 98.8 77 20 116/64 90 Room Air 09/26 0009 99.0 83 20 114/60 89 Room Air 09/25 1600 Room Air 09/25 1427 97.6 68 20 120/70 94 Intake & Output 09/26 0800 09/26 0000 09/25 1600 09/25 0800 09/25 0000 09/24 1600 Intake Total 240 212 200 1770 790 Output Total 640 520 490 505 Balance 240 -440 -120 970 285 Intake, IV 800 450 Intake, Oral 240 200 400 660 340 Number 0 0 Bowel Movements Output, 40 70 140 105 Drainage Output, Urine 600 450 350 400 Patient 225 lb Weight Physical Exam: General: Sleeping comfortably, awoke with verbal command, oriented x3, no obvious distress Cardiac: RRR, s1s2 Pulm: CTA bilaterally Abdomen: Non-tender, non-distended Extremties: Moves all extremities, distal sensations intact. Motor deficit appreciated in dorsi flexion only on left lower extremity, plantar flexion intact left, 5/5 in plantar and dorsi flexion right. Skin warm and well perfused. DP pulses palpable bilaterally Surgical site: Back. Dressing dry, SOPHIA drain holding suction. Sanguinous drainage appreciated Assessment/Plan Assessment/Plan This is a 51 year old male, POD 2, s/p TLIF for spondylolisthesis -Pain control: consider nsaid, will d/w Dr. Marrero regarding toradol -Activity: OOB with brace -Continue strict i/o, will consider d/c sophia drain when output <50 ml per shift ( was 40 during one shift yesterday, will assess today and d/w Dr. Marrero prior to pulling drain) -Continue diet as tolerated -ALPS/ ambulation for dvt ppx, consider sq heparin due to decreased activity Core Measures/Miscellaneous Venous Thromboembolism VTE Risk Factors: Age > 40, Surgery VTE Contraindications: No Contraindications VTE Diagnosis: No Beta Manny Is Beta Manny a Home Med? No Antibiotics Is Patient on Antibiotics? Yes
--- NOTE | 2016-09-26 08:44 | PN- Neurosurgical ---
Subjective Subjective: Pt with poor pain control. No new complaints. Objective Vital Signs and I&Os Vital Signs Date Time Temp Pulse Resp B/P Pulse O2 O2 Flow FiO2 Ox Delivery Rate 09/26 0720 98.8 77 20 116/64 90 Room Air 09/26 0009 99.0 83 20 114/60 89 Room Air 09/25 1600 Room Air 09/25 1427 97.6 68 20 120/70 94 Intake & Output 09/26 0800 09/26 0000 09/25 1600 09/25 0800 09/25 0000 Intake Total 240 669 965 5927 790 Output Total 15 640 520 490 505 Balance 225 -440 -120 970 285 Intake, IV 800 450 Intake, Oral 240 200 400 660 340 Number 0 0 Bowel Movements Output, 15 40 70 140 105 Drainage Output, Urine 600 450 350 400 Patient 102.058 kg Weight Physical Exam: AF, VSS ISSAC with 15cc last shift serosanguinous Pt awake and alert conversant and appropriate Incision is c,d,i and flat motor and sensory exam stable voiding on own taking min po at this point, ambulating only in room Current Medications: Current Medications Sig/Sarwat Start time Last Medication Dose Route Stop Time Status Admin Acetaminophen 650 MG Q4P PRN 09/24 1249 AC PO Bisacodyl 10 MG DAILY NEEDED PRN 09/24 1249 AC TN Diazepam 2 MG .STK-MED ONE 09/25 2217 DC PO 09/25 2218 Diazepam 5 MG Q8 09/24 2200 AC 09/26 PO 0508 Docusate Sodium 100 MG TID 09/24 1600 AC 09/25 PO 2240 Duloxetine HCl 60 MG DAILY 09/24 1330 AC 09/25 PO 1039 Gabapentin 800 MG Q6 09/24 1800 AC 09/26 PO 0507 Heparin Sodium 5,000 UNIT Q8 09/26 0839 UNVr (Porcine) SC Hydromorphone HCl 4 MG .STK-MED ONE 09/25 1410 DC PO 09/25 1411 Hydromorphone HCl 3 MG Q2P PRN 09/25 1345 AC 09/26 PO 0756 Hydromorphone HCl 2 MG Q2P PRN 09/25 1130 DC 09/25 PO 1150 Hydromorphone HCl 1 MG Q3P PRN 09/25 0930 DC 09/25 IV 0945 Hydromorphone HCl 4 MG Q3P PRN 09/25 0530 DC 09/25 PO 0842 Hydromorphone HCl 2 MG Q3P PRN 09/24 2115 DC 09/25 PO 0302 Ondansetron HCl 4 MG Q6P PRN 09/24 1249 AC IV Oxycodone HCl 30 MG Q8 09/25 1400 AC 09/26 PO 0613 Oxycodone HCl 30 MG Q12 09/24 2115 DC 09/25 PO 1038 Senna 374 MG 2200 PRN 09/26 2200 AC PO Sodium Chloride 1,000 ML Q10H 09/24 1248 DC 09/25 IV 09/25 0847 0530 Trimethobenzamide HCl 200 MG Q6P PRN 09/24 1249 AC IM Assessment/Plan Assessment/Plan Pt POD2 s/p L4/5, L5/S1 decompression and fusion and neurologically intacct. Pain control still an issue and was discussed with pt's pain physician coverage yesterday and adjustments made without improvement. Plan: -OOB -cont oxycontin 30 po tid, increase dilaudid to 4mg po q2hr -reg diet, encourage po intake -monitor UO and po fluids today -DVT prophylaxis with SQ heparin, SCD's -PT if needed for ambulation -cont IS use -dc drain, dc antibiotics Core Measures/Miscellaneous Venous Thromboembolism VTE Risk Factors: Age > 40, Surgery VTE Contraindications: No Contraindications VTE Diagnosis: No Beta Manny Is Beta Manny a Home Med? No Antibiotics Is Patient on Antibiotics? Yes Attending MD Review Statement Attending Statement Attending MD Statement: examined this patient, discuss w/resident/PA/TELEVISION ENGINEERING TEACHER, discussed w/nursing
[2016-09-26 14:32] VITALS: BP 126/80
[2016-09-26 21:32] VITALS: BP 120/70
[2016-09-27 06:40] VITALS: BP 128/72
--- NOTE | 2016-09-27 08:01 | PN- Neurosurgical ---
Subjective Subjective: Pt still with poor pain control, mild nausea yesterday, better this am Objective Vital Signs and I&Os Vital Signs Date Time Temp Pulse Resp B/P Pulse O2 O2 Flow FiO2 Ox Delivery Rate 09/27 0640 97.8 67 20 128/72 97 Room Air 09/26 2132 98.0 60 20 120/70 93 09/26 1432 97.7 90 20 126/80 96 Intake & Output 09/27 0800 09/27 0000 09/26 1600 09/26 0800 09/26 0000 09/25 1600 Intake Total 600 300 240 200 400 Output Total 200 100 15 640 520 Balance 400 200 225 -440 -120 Intake, IV 400 Intake, Oral 200 300 240 200 400 Number 1 0 0 Bowel Movements Output, 15 40 70 Drainage Output, Urine 200 100 600 450 Physical Exam: Pt AF, VSS Incision with min staining on dressing neurologically stable abd soft voiding on own coco min po sitting in chair, ambulating in room only Current Medications: Current Medications Sig/Sarwat Start time Last Medication Dose Route Stop Time Status Admin Acetaminophen 650 MG .STK-MED ONE 09/26 1809 DC PO 09/26 1810 Acetaminophen 650 MG Q4P PRN 09/24 1249 AC 09/26 PO 1812 Bisacodyl 10 MG DAILY NEEDED PRN 09/24 1249 AC NJ Dextrose/Sodium 1,000 ML Q10H 09/26 1445 DC 09/27 Chloride IV 0618 Diazepam 5 MG Q8 09/24 2200 AC 09/27 PO 0611 Docusate Sodium 100 MG TID 09/24 1600 AC 09/25 PO 2240 Duloxetine HCl 60 MG DAILY 09/24 1330 AC 09/26 PO 1033 Gabapentin 800 MG Q6 09/24 1800 AC 09/27 PO 0611 Heparin Sodium 5,000 UNIT Q8 09/26 0839 09/27 (Porcine) SC 0612 Hydromorphone HCl 4 MG Q3P PRN 09/26 0900 AC 09/27 PO 0611 Hydromorphone HCl 4 MG Q2P PRN 09/26 0845 DC PO Hydromorphone HCl 3 MG Q2P PRN 09/25 1345 DC 09/26 PO 0756 Ondansetron HCl 4 MG Q6P PRN 09/24 1249 AC IV Oxycodone HCl 30 MG Q8 09/25 1400 AC 09/27 PO 0611 Patient Medication 1 ED ONE ONE 09/26 1345 DC Teaching ED 09/26 1346 Senna 374 MG 2200 PRN 09/26 2200 AC PO Trimethobenzamide HCl 200 MG Q6P PRN 09/24 1249 AC IM Assessment/Plan Assessment/Plan Pt POD3 s/p L4/5, L5/S1 decompression and fusion. Pain control still the major issue and preventing pt from making progress. today: -OOB ambulating -encourage po -if better by afternoon and coco po, may dc home later today with services -will need 2 week fu with me for susan, wound check -pain meds on discharger per Dr. Aj (pt's pain doctor in [place]) -brace when OOB, cover incision for showers, no submerging, no driving Core Measures/Miscellaneous Venous Thromboembolism VTE Risk Factors: Age > 40, Surgery VTE Contraindications: No Contraindications VTE Diagnosis: No Beta Manny Is Beta Manny a Home Med? No Antibiotics Is Patient on Antibiotics? Yes Attending MD Review Statement Attending Statement Attending MD Statement: examined this patient, discuss w/resident/PA/HEALTH [employer], discussed w/nursing
[2016-09-27] MEDS ORDERED: DILAUDID4 M1 PO (14:00)
[2016-09-27 14:26] VITALS: BP 128/78
== END 2016-09-27 16:00 | disposition home health service (06) | DRG 460 ==
LOC: ENRESERVTM → ENRESERVDT → ENPENDDIS 02:38 → SDA 02:38 → 2NA 02:38 → SDA 07:00 → 2NA 16:35
PROVIDERS: ADMIT Neurological Surgery
PROC: 0ST40ZZ Resection of Lumbosacral Disc, Open Approach (ICD-10-PCS; principal; 2016-09-24)
PROC: 0SG00AJ Fusion of Lumbar Vertebral Joint with Interbody Fusion Device, Posterior Approach, Anterior Column, Open Approach (ICD-10-PCS; principal; 2016-09-24)
PROC: 07DR3ZZ Extraction of Iliac Bone Marrow, Percutaneous Approach (ICD-10-PCS; principal; 2016-09-24)
PROC: 0ST20ZZ Resection of Lumbar Vertebral Disc, Open Approach (ICD-10-PCS; principal; 2016-09-24)
PROC: 0SG30AJ Fusion of Lumbosacral Joint with Interbody Fusion Device, Posterior Approach, Anterior Column, Open Approach (ICD-10-PCS; principal; 2016-09-24)
DX: M51.17 Intervertebral disc disorders with radiculopathy, lumbosacral region (principal); I10 Essential (primary) hypertension; F17.210 Nicotine dependence, cigarettes, uncomplicated
CPT/HCPCS: 2NASP; 72020; 72100; 87086; 88304; 97162-GP; C9290; J0131; J0690; J1170; J1644; J2405; J3250; J3370; J7042